=== PATIENT | female | born 1980 | race Caucasian/White ===

== ENCOUNTER 2022-11-03 08:50 | Outpatient (OUT) | payer OTHER, SELFPAY ==
--- NOTE | 2022-11-03 08:57 | XR_ITS ---
The [address] [address] Patient Name: BRYCE VARGAS MRN: [id number] date: 1980 Sex: F Assigned Patient Location: [facility] Current Patient Location: [facility] Accession/Order Number: [id number] Exam Date: 11/03/2022 09:22 Report Date: 11/03/2022 09:41 At the request of: TORY ELIAS Procedure: XR wrist LT min 3V XR wrist LT min 3V, 11/03/2022 9:22 AM EDT INDICATION: Left Wrist Pain COMPARISON: None. TECHNIQUE: 3 views of the left wrist FINDINGS: No fracture or dislocation. No suspicious osseous lesion No radiopaque foreign body. XR/XR wrist LT min 3V IMPRESSION: No acute fracture or dislocation. Electronically authenticated by: JABARI COULTER Date: 11/03/2022 09:41
== END 2022-11-03 08:51 | disposition home or self-care (01) ==
LOC: RAD 08:53
PROVIDERS: PCP Family Medicine; Visit Provider Physician Assistant
DX: M25.532 Pain in left wrist (principal)
CPT/HCPCS: 73110

== ENCOUNTER 2022-11-23 11:45 | Outpatient (RCR) | payer OTHER, SELFPAY | END 2022-12-27 12:03 | disposition home or self-care (01) | LOC: OT 11:45 | PROVIDERS: PCP Family Medicine; Visit Provider Nurse Practitioner Family | DX: S63.502D Unspecified sprain of left wrist, subsequent encounter (principal) | CPT/HCPCS: 97014; 97035; 97110; 97140; 97165; 97530 ==

== ENCOUNTER 2023-06-15 09:37 | Outpatient (OUT) | payer OTHER, SELFPAY ==
--- OUTSIDE RECORDS SUMMARY | 2023-06-15 09:41 | XMS_ITS | CCD ---
Author Name Unknown Address [address] [place] [address] Organization [facility] Care Team Providers Care Insole Stiffener Name Role Phone None Unavailable Unavailable Norbert Roca Unavailable Unavailable KARASIK, DR OTERO Admitting Unavailable KARASIK, DR OTERO Consulting Unavailable KARASIK, DR OTERO Attending Unavailable HOUSE, DR HEART Primary Care Unavailable DORKOETTA KELSEY Consulting Unavailable KARASIK, DR OTERO Admitting Unavailable KARASIK, DR OTERO Consulting Unavailable HOUSE, DR HEART Primary Care Unavailable KARASIK, DR OTERO Attending Unavailable HOUSE, DR HEART Primary Care Unavailable INGA, MELCHOR Attending Unavailable INGA, MELCHOR Admitting Unavailable ZIEBER, DR NIGHAT Mejia Consulting Unavailable INGA, MELCHOR Consulting Unavailable HOUSE, DR HEART Primary Care Unavailable INGA, MELCHOR Attending Unavailable INGA, MELCHOR Admitting Unavailable ANA, DR QUINCY Robert Consulting Unavailable INGA, MELCHOR Consulting Unavailable KARASIK, DR OTERO Admitting Unavailable KARASIK, DR OTERO Attending Unavailable HOUSE, DR HEART Primary Care Unavailable CALIXALEIDA Consulting Unavailable HOUSE, DR HEART Primary Care Unavailable KARASIK, DR OTERO Admitting Unavailable KARASIK, DR OTERO Consulting Unavailable KARASIK, DR OTERO Attending Unavailable Elena Jackson Unavailable Allergies Allergy Classification Reported Allergen(s) Allergy Type Date of Onset Reaction(s) Facility (5 sources) baclofen; Translations: [Baclofen] Drug Allergy 4 AOF, skin [facility] Repository (4 sources) clarithromycin; Translations: [Clarithromycin] Drug Allergy 8 AOF, skin [facility] Repository (1 source) Clarithromycin Drug Allergy 4 [facility] Repository Medications Current Medications Medication Drug Class(es) Dates Sig (Normalized) Sig (Original) amoxicillin 875 mg / clavulanate 125 mg oral tablet (1 source) Penicillin-class Antibacterial Start: 02-06-2022 take 1 tablet by mouth every twelve hours Amoxicillin-Pot Clavulanate 875-125 MG 1 tablet Orally every 12 hrs for 10 day(s) Jan, Active fluticasone propionate 0.05 mg/actuat metered dose nasal spray (2 sources) Corticosteroid Start: 06-03-2022 take 2 spray(s) nasal route once daily Fluticasone Propionate 50 MCG/ACT 2 sprays Nasally Once a day for 14 day(s) May, Active Start: 02-06-2022 take 2 spray(s) nasa l route once daily Fluticasone Propionate 50 MCG/ACT 2 sprays Nasally Once a day for 14 day(s) Jan, Active golimumab (1 source) Tumor Necrosis Factor Gutierrez Simponi Aria Active Ibuprofen (2 sources) Nonsteroidal Anti-inflammatory Drug Ibuprofen Active Leucovorin (2 sources) Folate Analog Leucovorin Calci um Active Methotrexate (3 sources) Folate Analog Metabolic Inhibitor Methotrexate Active predniSONE 20 mg oral tablet (4 sources) Start: take 1 tablet by mouth every twelve hours predniSONE 20 MG 1 tablet Orally 2 times a day for 5 day(s) May, Active Start: 02-06-2022 take 1 tablet by sharmaine th every twelve hours predniSONE 20 MG 1 tablet Orally 2 times a day for 5 day(s) Jan, Active predniSONE Activ e Problems Problem Classification Problem Date Documented Date Episodic/Chronic Abdominal pain (5 sources) Pelvic and perineal pain; Translations: [PELVIC AND PERINEAL PAIN] Onset: 02-07-2021 Episodic Anxiety disorders (1 source) Anxiety disorder, unspecified; Translations: [ANXIETY DISORDER UNSPECIFIED] Onset: 02-17-2021 Chronic Benign neoplasm of uterus (1 source) Leiomyoma of uterus, unspecified; Translations: [LEIOMYOMA OF UTERUS UNSPECIFIED] Onset: 02-17-2021 Episodic Deficiency and other anemia (1 source) Beta thalassemia; Translations: [BETA THALASSEMIA] Onset: 02-17-2021 Chronic Deficiency and other anemia (1 source) Anemia, unspecified; Translations: [ANEMIA UNSPECIFIED] Onset: 02-17-2021 Episodic Endometriosis (1 source) Endometriosis of pelvic peritoneum; Translations: [ENDOMETRIOSIS OF PELVIC PERITONEUM] Onset: 02-17-2021 Chronic Immunizations and screening for infectious disease (5 sources) Encounter for screening for human papillomavirus (HPV); Translations: [Encounter for screening for other viral diseases] Onset: 01-18-2021 Resolved: 09-21-2021 Episodic Inflammatory diseases of female pelvic organs (1 source) Female pelvic peritoneal adhesions (postinfective); Translations: [FE PELV PERITON ADHES POSTINFECTIVE] Onset: 02-17-2021 Episodic Menstrual disorders (1 source) Excessive and frequent menstruation with regular cycle; Translations: [EXCESS FREQ MENSTRUATION W/REG CYCL] Onset: 02-17-2021 Chronic Mood disorders (1 source) Mood disorders; Translations: [DEPRESSION UNSPECIFIED] Onset: 02-17-2021 Other aftercare (1 source) Other jail (current) drug therapy; Translations: [OTH ALF CURRENT DRUG THERAPY] Onset: 02-17-2021 Episodic Other female genital disorders (1 source) Stricture and stenosis of cervix uteri; Translations: [STRICTURE AND STENOSIS CERVIX UTERI] Onset: 02-17-2021 Episodic Other nutritional; endocrine; and metabolic disorders (1 source) Morbid (severe) obesity due to excess calories; Translations: [MORBID SEVERE OBES D/T EXCESS TATI] Onset: 02-17-2021 Chronic Other nutritional; endocrine; and metabolic disorders (1 source) Body mass index (BMI) 40.0-44.9, adult; Translations: [BODY MASS INDEX BMI 40.0-44.9 ADULT] Onset: 02-17-2021 Chronic Other nutritional; endocrine; and metabolic disorders (1 source) Obesity, unspecified; Translations: [OBESITY UNSPECIFIED] Onset: 12-31-2020 Chronic Other screening for suspected conditions (not mental disorders or infectious disease) (4 sources) Encounter for screening for malignant neoplasm of cervix; Translations: [ENC SCREENING MALIG NEOPLASM CERV] Onset: 01-05-2021 Episodic Other upper respiratory disease (1 source) Nasal congestion Episodic Other upper respiratory infections (2 sources) Acute sinusitis, unspecified Episodic Ovarian cyst (6 sources) Unspecified ovarian cyst, unspecified side; Translations: [Unspecified ovarian cyst, left side] Onset: 12-28-2020 Episodic Residual codes; unclassified (1 source) Procedure and treatment not carried out for other reasons; Translations: [PROC AND TX NOT CARRIED OUT OTH REASONS] Onset: 02-17-2021 Episodic Rheumatoid arthritis and related disease (1 source) Rheumatoid arthritis, unspecified; Translations: [RHEUMATOID ARTHRITIS UNSPECIFIED] Onset: 02-17-2021 Chronic Substance-related disorders (1 source) Nicotine dependence, cigarettes, uncomplicated; Translations: [NICOTINE DEPEND CIGARETTES UNCOMP] Onset: 02-17-2021 Chronic Unclassified (1 source) CONTACT W/AND (SUSP) EXPOS COVID-19; Translations: [CONTACT W/AND (SUSP) EXPOS COVID-19] Onset: 02-11-2021 Results Test Name Value Interpretation Reference Range Facility COVID + FLU Quick Testingon 06-03-2022 SARS-CoV-2 (COVID-19) RNA CECIL+probe Ql (Unsp spec) Negative [employer] Other COVID + FLU Quick Testing Negative [employer] Other SARS-CoV-2 (COVID-19) RNA NA A+probe Ql (Resp)on 02-06-2022 SARS-CoV-2 (COVID-19) RNA CECIL+probe Ql (Unsp spec) Negative [employer] Other COVID Quick Testingon 2021 Result Negative [employer] Other Quick Fluon 09-21-2021 FLUAV Ab CF (S) [Titer] Negative [employer] Other FLUBV Ab CF (S) [Titer] Negative [employer] Other URon 02-07-2021 , QUAL Negative Normal NEGATIVE [facility] Comment on above: Performed By: #### L JULI MARTIN AMY #### [facility] [address] [place] [address] Dr. Pasquale Tiwari Covid-19 PCR (CVDTB)on 01-15 SARS-CoV-2 (COVID-19) RNA CECIL+probe Ql (Unsp spec) Not detected Normal NOT DETECTED [facility] Comment on above: Result Comment: This test is not yet approved or cleared by the [place] FDA. When there are no FDA-approved or cleared tests available, and other criteria are met, FDA can make tests available under an emergency access mechanism called an Emergency Use Authorization (EUA). The EUA for this test is supported by the Human Resource Consultant of Health and Human Service's (HHS's) declaration that circumstances exist to justify the emergency use of in vitro diagnostics for the detection and/or diagnosis of the virus that causes COVID-19. This EUA will remain in effect (meaning this test can be used) for the duration of the COVID-19 declaration justifying emergency of IVDs, unless it is terminated or revoked by FDA (after which the test may no longer be used). When diagnostic testing is negative, the possibility of a false negative should be considered in the context of a patient's recent exposures and the presence of clinical signs and symptoms consistent with SARS-CoV-2. Performed By: #### L IPA, CMP, TORY #### [facility] [address] [place] [address] Dr. Pasquale Tiwari CBC AUTO DIFFon 02-01-2021 BASO # 0.0 103/ul Normal 0.0-0.1 [facility] Comment on above: Performed By: #### L IPA, CMP, TORY #### [facility] [address] [place] [address] Dr. Pasquale Tiwari Basophils/100 WBC (Bld) 0.4 % Normal 0.2-2.0 [facility] Comment on above: Performed By: #### L IPA, CMP, TORY #### [facility] [address] [place] [address] Dr. Pasquale Tiwari EO # 0.4 103/ul Normal 0.0-0.7 [facility] Comment on above: Performed By: #### L IPA, CMP, TORY #### [facility] [address] [place] [address] Dr. Pasquale Tiwari Eosinophils/100 WBC (Bld) 4.3 % Normal 0.9-7.0 [facility] Comment on above: Performed By: #### L IPA, CMP, TORY #### [facility] [address] [place] [address] Dr. Pasquale Tiwari Erythrocyte distribution width (RBC) [Ratio] 17.7 % Critically high 11.0-15.0 [facility] Comment on above: Performed By: #### L IPA CMP, TORY #### [facility] [address] [address] [address] Pasquale Tiwari Hematocrit (Bld) [Volume fraction] 33.5 % Critically low 36.0-48.0 [facility] Comment on above: Performed By: #### L IPA CMP, TORY #### [facility] [address] [place] [address] Dr. Pasquale Tiwari Hemoglobin (Bld) [Mass/Vol] 10.1 g/dL Critically low 12.0-16.0 [facility] Comment on above: Performed By: #### L IPA CMP, TORY #### [facility] [address] [place] [address] Dr. Pasquale Tiwari IG # 0.02 10e3/ul Normal 0.00-0.03 [facility] Comment on above: Performed By: #### L IPA CMP, TORY #### [facility] [address] [place] [address] Dr. Pasquale Tiwari IG % 0.2 % Normal 0.0-0.5 [facility] Comment on above: Performed By: #### L IPA CMP, TORY #### [facility] [address] [place] [address] Dr. Pasquale Tiwari LYMPH # 4.1 103/ul Critically high 1.2-3.8 [facility] Comment on above: Performed By: #### L IPA, CMP, TORY #### [facility] [address] [place] [address] Dr. Pasquale Tiwari Lymphocytes/100 WBC (Bld) 40.8 % Normal 20.5-60.0 [facility] Comment on above: Performed By: #### L IPA, CMP, TORY #### [facility] [address] [place] [address] Dr. Pasquale Tiwari MANUAL DIFF REQ NO Normal [facility] Comment on above: Performed By: #### L IPA, CMP, TORY #### [facility] [address] [address] [address] Pasquale Tiwari MCH (RBC) [Entitic mass] 19.3 pg Critically low 26.7-34.0 [facility] Comment on above: Performed By: #### L IPA, CMP, TORY #### [facility] [address] [place] [address] Dr. Pasquale Tiwari MCHC (RBC) [Mass/Vol] 30.1 g/dL Normal 29.9-35.2 [facility] Comment on above: Performed By: #### L IPA, CMP, TORY #### [facility] [address] [place] [address] Dr. Pasquale Tiwari MCV (RBC) [Entitic vol] 64.2 fL Critically low 81.0-99.0 [facility] Comment on above: Performed By: #### L IPA, CMP, TORY #### [facility] [address] [place] [address] Dr. Pasquale Tiwari MONO # 0.7 103/ul Normal 0.3-0.8 [facility] Comment on above: Performed By: #### L IPA, CMP, TORY #### [facility] [address] [place] [address] Dr. Pasquale Tiwari Monocytes/100 WBC (Bld) 6.7 % Normal 1.7-12.0 [facility] Comment on above: Performed By: #### L IPA, CMP, TORY #### [facility] [address] [place] [address] Dr. Pasquale Tiwari NEUT # 4.7 103/ul Normal 1.4-6.5 [facility] Comment on above: Performed By: #### L IPA, CMP, TORY #### [facility] [address] [place] [address] Dr. Pasquale Tiwari Neutrophils/100 WBC (Bld) 47.6 % Normal 43.0-75.0 [facility] Comment on above: Performed By: #### L IPA, CMP, TORY #### [facility] [address] [place] [address] Dr. Pasquale Tiwari Platelet mean volume (Bld) [Entitic vol] 9.1 fL Critically low 9.5-13.5 [facility] Comment on above: Performed By: #### L IPA, CMP, TORY #### [facility] [address] [place] [address] Dr. Pasquale Tiwari PLT 362 103/ul Normal 150-450 [facility] Comment on above: Performed By: #### L IPA, CMP, TORY #### [facility] [address] [place] [address] Dr. Pasquale Tiwari RBC 5.22 106/ul Normal 4.20-5.40 [facility] Comment on above: Performed By: #### L IPA, CMP, TORY #### [facility] [address] [place] [address] Dr. Pasquale Tiwari WBC 10.0 103/ul Normal 4.0-11.0 [facility] Comment on above: Performed By: #### L IPA, CMP, TORY #### [facility] [address] [place] [address] Dr. Pasquale Tiwari PAP ACOG PANEL 2: 30 to 65on 01-11-2021 . . Normal [facility] Comment on above: Result Comment: Perf ormed at: WB Performed By: #### [id number] #### [facility] [address] [place] [address] Dr. Pasquale Tiwari Age Gdln ACOG Testing 30-65 [facility] Comment on above: Performed By: #### [id number] #### [facility] [address] [place] [address] Dr. Pasquale Tiwari DIAGNOSIS: Comment Normal [facility] Comment on above: Result Comment: NEGA TIVE FOR INTRAEPITHELIAL LESION OR MALIGNANCY. Performed at: WB Performed By: #### [id number] #### [facility] [address] [place] [address] Dr. Pasquale Tiwari HPV Aptima Negative Normal Negative [facility] Comment on above: Result Comment: This nucleic acid amplification test detects fourteen high-risk HPV types (16,18,31,33,35,39,45,51,52,56,58,59,66,68) without differentiation. Performed at: =G Performed By: #### [id number] #### [facility] [address] [place] [address] Dr. Pasquale Tiwari Methodology: Comment Normal [facility] Comment on above: Result Comment: This liquid based ThinPrep(R) pap test was screened with the use of an image guided system. Performed at: WB Performed By: #### [id number] #### [facility] [address] [place] [address] Dr. Pasquale Tiwari Note: Comment Normal [facility] Comment on above: Result Comment: The Pap smear is a screening test designed to aid in the detection of premalignant and malignant conditions of the uterine cervix. It is not a diagnostic procedure and should not be used as the sole means of detecting cervical cancer. Both false-positive and false-negative reports do occur. . Performed at: WB Performed By: #### [id number] #### [facility] [address] [place] [address] Dr. Pasquale Tiwari Performed by: Comment Normal [facility] Comment on above: Result Comment: Jasmin Smith, Grit Blaster (ASCP) Performed at: WB Performed By: #### [id number] #### [facility] [address] [place] [address] Dr. Pasquale Tiwari Specimen adequacy: Comment Normal [facility] Comment on above: Result Comment: Sati sfactory for evaluation. No endocervical component is identified. Performed at: WB Performed By: #### [id number] #### [facility] [address] [place] [address] ABD/PELV W CONon 12-30-[address] ABD/PELV W CON EXAMINATION: CT ABD/PELV W CON, 12/28/2020 9:32 PM EDT HISTORY: UNSPECIFIED ABDOMINAL PAIN COMPARISON: None. TECHNIQUE: CT scan of the abdomen and pelvis was performed with IV contrast. CT dose reduction technique was used, including Automated Exposure Control. FINDINGS: LUNG BASES: Mild scattered bibasilar opacities, atelectasis favored LIVER: No enlargement, atrophy, abnormal density, or significant focal lesion. BILIARY: The gallbladder is not visualized PANCREAS: No lesion, fluid collection, ductal dilatation, or atrophy. SPLEEN: No enlargement or focal lesion. ADRENALS: No mass or enlargement. KIDNEYS: No mass, obstruction, or calcification. BOWEL/MESENTERY: Colonic diverticulosis. Nonobstructive bowel gas pattern. Normal appendix. AORTA/VASCULAR: No aortic aneurysm. Mild atherosclerosis. Retroaortic left renal vein. RETROPERITONEUM: No mass or adenopathy. LYMPH NODES: No adenopathy. URINARY BLADDER: No visible focal wall thickening, lesion, or calculus. PELVIC ORGANS: Mild dilation of the endometrial cavity, correlate with the menstrual cycle. Left ovarian hypodense lesion measuring 4.3 cm with a density of 24-26 Hounsfield units. ABDOMINAL WALL: 1 cm umbilical hernia containing fat without strangulation BONES: No bony lesion or fracture. OTHER: Negative. IMPRESSION: 4.3 cm hyperdense lesion of the left ovary possibly a complex or hemorrhagic cyst Electronically authenticated by: QUINCY PEREZ Date: 2020-12-28 23:37 Normal [facility] US PELVIS TRANSVAGon 021 US PELVIS TRANSVAG EXAMINATION: US PELVIS TRANSVAG HISTORY: Cyst of ovary ; low pelvic pain for one day, history of heavy, painful menses COMPARISON: No relevant comparison available. TECHNIQUE: Transabdominal and transvaginal sonographic examination. FINDINGS: UTERUS: Rounded heterogeneous area within the posterior myometrium, 1.3 x 1.0 x 0.8 cm, likely a leiomyoma. Uterus size: 10.1 x 7.5 x 5.1 cm ENDOMETRIUM: Normal homogeneous appearance. Endometrial thickness: 5 mm RIGHT OVARY: Heterogeneous complex cyst versus mass within right ovary, 2.9 x 2.4 x 2.1 cm. Duplex Doppler demonstrates normal waveform and flow; resistive index 0.51. Ovary size: 4.9 x 3.5 x 2.9 cm LEFT OVARY: Contains an isoechoic complex cyst versus mass, 4.3 x 3.7 x 3.2 cm; and a second complex cyst versus mass, 2.1 x 2.1 x 1.5 cm. Duplex Doppler demonstrates normal waveform and flow; resistive index 0.57. Ovary size: 5.2 x 5.2 x 4.3 cm CUL-DE-SAC: Unremarkable. No significant free fluid. BLADDER: Unremarkable. OTHER: None. IMPRESSION: 1. Small posterior uterine wall mass favoring a leiomyoma; of questionable clinical significance. 2. Bilateral ovarian complex cyst versus masses versus endometriomas. Follow-up ultrasound study in 6 weeks is recommended to evaluate for regression/change. Electronically authenticated by: NIGHAT JOSE Date: 2020-12-29 10:09 Normal [facility] AMYLASEon 12-28-2020 Amylase [Catalytic activity/Vol] 36 U/L Normal 31-110 [facility] Comment on above: Performed By: #### L IPA, CMP, TORY #### [facility] [address] [place] [address] Dr. Pasquale Tiwari CBC AUTO DIFFon 12-28-2020 BASO # 0.1 103/ul Normal 0.0-0.1 [facility] Comment on above: Performed By: #### C BC #### [facility] [address] [place] [address] Dr. Pasquale Tiwari Basophils/100 WBC (Bld) 0.5 % Normal 0.2-2.0 [facility] Comment on above: Performed By: #### C BC #### [facility] [address] [place] [address] Dr. Pasquale Tiwari EO # 0.7 103/ul Normal 0.0-0.7 [facility] Comment on above: Performed By: #### C BC #### [facility] [address] [place] [address] Dr. Pasquale Tiwari Eosinophils/100 WBC (Bld) 5.5 % Normal 0.9-7.0 [facility] Comment on above: Performed By: #### C BC #### [facility] [address] [place] [address] Dr. Pasquale Tiwari Erythrocyte distribution width (RBC) [Ratio] 18.0 % Critically high 11.0-15.0 [facility] Comment on above: Performed By: #### C BC #### [facility] [address] [place] [address] Dr. Pasquale Tiwari Hematocrit (Bld) [Volume fraction] 38.7 % Normal 36.0-48.0 [facility] Comment on above: Performed By: #### C BC #### [facility] [address] [address] [address] Pasquale Tiwari Hemoglobin (Bld) [Mass/Vol] 11.8 g/dL Critically low 12.0-16.0 [facility] Comment on above: Performed By: #### C BC #### [facility] [address] [address] [address] Pasquale Tiwari IG # 0.04 10e3/ul Critically high 0.00-0.03 [facility] Comment on above: Performed By: #### C BC #### [facility] [address] [address] [address] Pasquale Tiwari IG % 0.3 % Normal 0.0-0.5 [facility] Comment on above: Performed By: #### C BC #### [facility] [address] [place] [address] Dr. Pasquale Tiwari LYMPH # 3.2 103/ul Normal 1.2-3.8 [facility] Comment on above: Performed By: #### C BC #### [facility] [address] [place] [address] Dr. Pasquale Tiwari Lymphocytes/100 WBC (Bld) 24.9 % Normal 20.5-60.0 [facility] Comment on above: Performed By: #### C BC #### [facility] [address] [place] [address] Dr. Pasquale Tiwari MANUAL DIFF REQ NO Normal [facility] Comment on above: Performed By: #### C BC #### [facility] [address] [address] [address] Pasquale Tiwari MCH (RBC) [Entitic mass] 19.4 pg Critically low 26.7-34.0 [facility] Comment on above: Performed By: #### C BC #### [facility] [address] [place] [address] Dr. Pasquale Tiwari MCHC (RBC) [Mass/Vol] 30.5 g/dL Normal 29.9-35.2 [facility] Comment on above: Performed By: #### C BC #### [facility] [address] [place], [place] [id number] Dr. Pasquale Tiwari MCV (RBC) [Entitic vol] 63.5 fL Critically low 81.0-99.0 [facility] Comment on above: Performed By: #### C BC #### [facility] [address] [place] [address] Dr. Pasquale Tiwari MONO # 0.8 103/ul Normal 0.3-0.8 [facility] Comment on above: Performed By: #### C BC #### [facility] [address] [place] [address] Dr. Pasquale Tiwari Monocytes/100 WBC (Bld) 6.5 % Normal 1.7-12.0 [facility] Comment on above: Performed By: #### C BC #### [facility] [address] [place] [address] Dr. Pasquale Tiwari NEUT # 8.1 103/ul Critically high 1.4-6.5 [facility] Comment on above: Performed By: #### C BC #### [facility] [address] [place] [address] Dr. Pasquale Tiwari Neutrophils/100 WBC (Bld) 62.3 % Normal 43.0-75.0 [facility] Comment on above: Performed By: #### C BC #### [facility] [address] [place] [address] Dr. Pasquale Tiwari Platelet mean volume (Bld) [Entitic vol] 9.6 fL Normal 9.5-13.5 [facility] Comment on above: Performed By: #### C BC #### [facility] [address] [place] [address] Dr. Pasquale Tiwari PLT 333 103/ul Normal 150-450 [facility] Comment on above: Performed By: #### C BC #### [facility] [address] [place], [place] [id number] Dr. Pasquale Tiwari RBC 6.09 106/ul Critically high 4.20-5.[address] [facility] Comment on above: Result Comment: SLID E REVIEWED: MICROCYTOSIS NOTED Performed By: #### C BC #### [facility] [address] [address] [address] Pasquale Tiwari WBC 13.0 103/ul Critically high 4.0-11.[address] [facility] Comment on above: Performed By: #### C BC #### [facility] [address] [place] [address] Dr. Pasquale Tiwari ER URINE PROFILEon 1 Bilirubin Ql (U) SMALL Abnormal NEGATIVE [facility] Comment on above: Performed By: #### E RUR, PREGU, UMICRO #### [facility] [address] [place] [address] Dr. Pasquale Tiwari Clarity (U) CLEAR Normal CLEAR [facility] Comment on above: Performed By: #### E RUR, PREGU, UMICRO #### [facility] [address] [place] [address] Dr. Pasquale Tiwari Color (U) DK. YELLOW Normal YELLOW [facility] Comment on above: Performed By: #### E RUR, PREGU, UMICRO #### [facility] [address] [place] [address] Dr. Pasquale RUIZ A micrscopic examination will be performed if indicated. Normal [facility] Comment on above: Performed By: #### E RUR, PREGU, UMICRO #### [facility] [address] [place] [address] Dr. Pasquale Tiwari Glucose Ql (U) Negative Normal NEGATIVE [facility] Comment on above: Performed By: #### E RUR, PREGU, UMICRO #### [facility] [address] [place] [address] Dr. Pasquale Tiwari Hemoglobin Ql (U) LARGE Abnormal NEGATIVE The [facility] Comment on above: Performed By: #### E RUR, PREGU, UMICRO #### [facility] [address] [place] [address] Dr. Pasquale Tiwari Ketones Ql (U) 15 mg/dl Abnormal NEGATIVE [facility] Comment on above: Performed By: #### E RUR, PREGU, UMICRO #### [facility] [address] [place] [address] Dr. Pasquale Tiwari LEUKOCYTES Negative Normal NEGATIVE [facility] Comment on above: Performed By: #### KELSY BLACK UMICRO #### [facility] [address] [place] [address] Dr. Pasquale Tiwari Nitrite Ql (U) Negative Normal NEGATIVE [facility] Comment on above: Performed By: #### KELSY BLACK UMICRO #### [facility] [address] [address] [address] Pasquale Tiwari pH (U) 5.5 [pH] Normal 5-9 [facility] Comment on above: Performed By: #### KELSY BLACK UMICRO #### [facility] [address] [place] [address] Dr. Pasquale Tiwari Protein (U) [Mass/Vol] 30 mg/dL Abnormal NEGATIVE/ TRACE [facility] Comment on above: Performed By: #### KELSY BLACK UMICRO #### [facility] [address] [place] [address] Dr. Pasquale Tiwari SPEC GRAVITY >=1.030 Abnormal 1.005-<=1.025 The [facility] Comment on above: Performed By: #### KELSY BLACK UMICRO #### [facility] [address] [place] [address] Dr. Pasquale Tiwari UR MICRO IND INDICATED Normal [facility] Comment on above: Performed By: #### KELSY BLACK UMICRO #### [facility] [address] [place] [address] Dr. Pasquale Tiwari Urobilinogen Qn (U) 1.0 {Anuja'U}/dL Normal 0.2 - 1. 0 [facility] Comment on above: Performed By: #### KELSY BLACK UMICRO #### [facility] [address] [place] [address] Dr. Pasquale Tiwari LACTATE/LACTIC ACIDon 2020 Lactate [Moles/Vol] 1.5 mmol/L Normal 0.7-2.0 [facility] Comment on above: Performed By: #### L IPA, CMP, TORY #### [facility] [address] [place] [address] Dr. Pasquale Tiwari LIPASEon 12-28-2020 Lipase [Catalytic activity/Vol] 101.0 U/L Normal 23.0-300.0 [facility] Comment on above: Performed By: #### L IPA, CMP, TORY #### [facility] [address] [place] [address] Dr. Pasquale Tiwari URon 12-28-2020 , QUAL Negative Normal NEGATIVE [facility] Comment on above: Performed By: #### E RUR, PREGU, UMICRO #### [facility] [address] [place] [address] Dr. Pasquale Tiwari PROF 14(COMP METB)on 021 Albumin [Mass/Vol] 3.9 g/dL Normal 3.5-5.0 [facility] Comment on above: Performed By: #### L IPA, CMP, TORY #### [facility] [address] [place] [address] Dr. Pasquale Tiwari Albumin/Globulin [Mass ratio] 1.0 {ratio} Normal [facility] Comment on above: Performed By: #### L IPA, CMP, TORY #### [facility] [address] [place] [address] Dr. Pasquale Tiwari ALP [Catalytic activity/Vol] 105 U/L Normal 38-126 [facility] Comment on above: Performed By: #### L IPA, CMP, TORY #### [facility] [address] [place] [address] Dr. Pasquale Tiwari ALT [Catalytic activity/Vol] 22 U/L Normal 9-52 [facility] Comment on above: Performed By: #### L IPA, CMP, TORY #### [facility] [address] [place] [address] Dr. Pasquale Tiwari Anion gap [Moles/Vol] 11.9 mmol/L Normal [facility] Comment on above: Performed By: #### L IPA, CMP, TORY #### [facility] [address] [place], [place] [id number] Dr. Pasquale Tiwari AST [Catalytic activity/Vol] 17 U/L Normal 14-36 [facility] Comment on above: Performed By: #### L IPA, CMP, TORY #### [facility] [address] [place] [address] Dr. Pasquale Tiwari Bilirubin [Mass/Vol] 0.5 mg/dL Normal 0.2-1.3 [facility] Comment on above: Performed By: #### L IPA, CMP, TORY #### [facility] [address] [place] [address] Dr. Pasquale Tiwari Calcium [Mass/Vol] 9.3 mg/dL Normal 8.4-10.2 [facility] Comment on above: Performed By: #### L IPA, CMP, TORY #### [facility] [address] [place] [address] Dr. Pasquale Tiwari Chloride [Moles/Vol] 107 mmol/L Normal 98-107 [facility] Comment on above: Performed By: #### L IPA, CMP, TORY #### [facility] [address] [place] [address] Dr. Pasquale Tiwari CO2 [Moles/Vol] 26.4 mmol/L Normal 22.0-30.0 [facility] Comment on above: Performed By: #### L IPA, CMP, TORY #### [facility] [address] [place] [address] Dr. Pasquale Tiwari Creatinine [Mass/Vol] 1.11 mg/dL Critically high 0.52-1.04 [facility] Comment on above: Performed By: #### L IPA, CMP, TORY #### [facility] [address] [place] [address] Dr. Pasquale Tiwari EGFR-AF UZBEK >60 Normal >=[address] [facility] Comment on above: Performed By: #### L IPA, CMP, TORY #### [facility] [address] [place] [address] Dr. Pasquale Tiwari EGFR-NON AF UZBEK 54 mL/min/1.73m2 Critically low >=60 [facility] Comment on above: Performed By: #### L IPA, CMP, TORY #### [facility] [address] [address] [address] Pasquale Tiwari Globulin (S) [Mass/Vol] 4.0 g/dL Normal [facility] Comment on above: Performed By: #### L IPA, CMP, TORY #### [facility] [address] [address] [address] Pasquale Tiwari Glucose [Mass/Vol] 127 mg/dL Critically high 74-106 [facility] Comment on above: Performed By: #### L IPA, CMP, TORY #### [facility] [address] [address] [address] Pasquale Tiwari Potassium [Moles/Vol] 3.3 mmol/L Critically low 3.4-5.0 [facility] Comment on above: Performed By: #### L IPA, CMP, TORY #### [facility] [address] [place] [address] Dr. Pasquale Tiwari Protein [Mass/Vol] 7.9 g/dL Normal 6.1-8.2 [facility] Comment on above: Performed By: #### L IPA, CMP, TORY #### [facility] [address] [address] [address] Pasquale Tiwari Sodium [Moles/Vol] 142 mmol/L Normal 137-145 [facility] Comment on above: Performed By: #### L IPA, CMP, TORY #### [facility] [address] [address] [address] Pasquale Tiwari Urea nitrogen [Mass/Vol] 13.0 mg/dL Normal 7.0-17.0 [facility] Comment on above: Performed By: #### L IPA, CMP, TORY #### [facility] [address] [address] [address] Pasquale Tiwari Urea nitrogen/Creatinine [Mass ratio] 11.7 mg/mg Normal [facility] Comment on above: Performed By: #### L IPA, CMP, TORY #### [facility] [address] [address] [address] Pasquale Tiwari URINE MICROSCOPIC ONLYon BACTERIA TRACE Abnormal NONE SEEN [facility] Comment on above: Performed By: #### E RUR, PREGU, UMICRO #### [facility] [address] [address] [address] Pasquale Tiwari Bacteria identified Cx Nom (U) NOT INDICATED Normal [facility] Comment on above: Performed By: #### E RUR, PREGU, UMICRO #### [facility] [address] [address] [address] Pasquale Tiwari CA OX CRYSTALS FEW Normal [facility] Comment on above: Performed By: #### E RUR, PREGU, UMICRO #### [facility] [address] [address] [address] Pasquale Tiwari CAST NONE SEEN Normal NONE SEEN [facility] Comment on above: Performed By: #### E RUR, PREGU, UMICRO #### [facility] [address] [address] [address] Pasquale Tiwari Crystals LM Nom (Urine sed) SEEN Abnormal NONE SEEN [facility] Comment on above: Performed By: #### E RUR, PREGU, UMICRO #### [facility] [address] [address] [address] Pasquale Tiwari Epithelial cells LM Ql (Urine sed) MODERATE Abnormal NONE SEEN /RARE [facility] Comment on above: Performed By: #### E RUR, PREGU, UMICRO #### [facility] [address] [address] [address] Pasquale Tiwari MUCOUS LARGE Abnormal NONE SEEN [facility] Comment on above: Performed By: #### E RUR, PREGU, UMICRO #### [facility] [address] [address] [address] Pasquale Tiwari RBC 5-10 Abnormal 0-2 [facility] Comment on above: Performed By: #### E RUR, PREGU, UMICRO #### [facility] [address] [address] [address] Pasquale Tiwari WBC 2-5 Abnormal NONE SEEN [facility] Comment on above: Performed By: #### E RUR, PREGU, UMICRO #### [facility] [address] [place], [place] [address] Dr. Pasquale Tiwari ER Physician Documentationon 11-12-2017 ER Physician Documentation [facility] Patient: BRYCE VARGAS [address] : 1980 [place], [place] [address] Location: ER [phone] Unit #: [id number] ER Physician Documentation Service Date:11/08/17 ER Provider: Norbert Roca MD HPI - Upper Extremity Problem Time Seen by Provider: 11/08/17 07:53 Arrival Mode: Private Vehicle Historian: Patient - History of Present Illness Stated Complaint: RT NECK SHOULDER WRIST PAIN Symptoms Began: Yesterday Injury: No Location: Right, Shoulder, Wrist Ms. Bruce is a 37-year-old female presenting to the ED with complaint of right shoulder, neck, wrist pain. Patient states that she developed the symptoms yesterday she was taking Aleve/ibuprofen for her pain at home. She obtained a little relief however then she developed the pain again this morning around 2 in the morning when she was driving home. Patient states that the pain became too much therefore she stopped it to be evaluated. She does admit to a history of rheumatoid arthritis, although she states the only medication she takes is ibuprofen for her rheumatoid arthritis. She has tried other medications in the past, but had an adverse reaction therefore she discontinued them. Patient denies any other medical history. She additionally denies any injury to the area. Past Medical History Allergies/Adverse Reactions: Allergies/Adverse Reactions Clarithromycin [From Biaxin] Allergy (Severe, Verified 11/08/17 08:05) SKIN PEELS OFF Baclofen Allergy (Unknown, Verified 11/08/17 08:05) Nausea and Vomiting Home Medications: Home Medications Cyclobenzaprine HCl [Flexeril] 10 mg PO BID #14 tab 11/08/17 [Rx] Review and agree with Nursing - Past Medical History: Agree Review and agree with Nursing - Social History: Agree Review and agree with Nursing - Family History: Agree Review of Systems Constitutional: No symptoms EENT: No symptoms Respiratory: No symptoms Cardiac: No symptoms Abdomen/GI: No symptoms Genitourinary: No symptoms Skin: No symptoms Musculoskeletal: Other - Right neck, shoulder, wrist pain. Neurological: No symptoms Endocrine: No symptoms Hematologic/Lymphatic : No symptoms Psychiatric: No symptoms All other systems: Reviewed and negative except HPI Exam - Physical Exam Patient presentation: No apparent distress General Appearance: Positive: Resting comfortable General Age: Appears stated age General Skin: Normal for ethnicity General Habitus: Normal General Mental Status: Alert General hydration: Moist mucous membranes Cardiovascular Exam: Regular rate and rhythm, No gallop, No murmur Heart sounds: Normal Pulmonary exam: Lungs clear, No wheezing, No respiratory distress, No crackles Cough: No cough Respirations: Normal Gastrointestinal Exam: Normal bowel sounds, non tender, No masses, Soft, No organomegaly - Musculoskeletal Exam Musculoskeletal Exam: Full ROM - to the neck, however patient does admit to some discomfort., Neurovascular intact, Other - Fall range of motion to the elbow and wrist joint. No edema noted. Limited range of motion to the right shoulder joint due to pain. - Psychiatric Exam Alert , oriented x 3, Normal mood affect, Normal speech - Progress note 09:30 Pt admits to some relief with Toradol. Patient will be given second dose. 10:04 Pt was updated on her imaging results and plan to discharge with a muscle relaxer. Pt stated that her pain had improved after second toradol dose. Pt agreed to POC. All questions were answered. - Orders/Results Orders XR Cervical Spine Routine Stat Exams 11/08/17 08:25 Completed XR Shoulder Right 2-3 Views Stat Exams 11/08/17 08:25 Completed Vital Signs 11/08/17 07:53 97.8 F 69 18 148/97 H 100 Departure Disposition*: Discharge from ER Condition*: Good Clinical Impression*: Muscle spasm Shoulder pain Qualifiers: Chronicity: unspecified Laterality: right Qualified Code(s): M25.511 - Pain in right shoulder Additional Instructions: Return to the emergency department if any new or worsening symptoms. Follow-up with your provider who manages her rheumatoid arthritis in one week. Take muscle relaxer as directed. Do not take while operating a vehicle as medication can make sleepy. Referrals: Non Staff,Physician [Other] - in one week Forms: ED Additional Information Prescriptions: Cyclobenzaprine HCl [Flexeril] 10 mg PO BID #14 tab - Shared Attending Note 11/08/17 8:21 Dr. Norbert Roca physically examined the pt. Pt presented to ED with a c/o right shoulder, neck, and wrist pain. Pt has a Hx of rheumatoid arthritis. Physical exam findings included reproducible tenderness to the shoulder with palpation and ROM. Dr. Roca agrees to JUICE Infante POC. All questions and concerns were addressed. - Supervision/Review Statement Evaluation and management services were performed by the PROTOTYPE MACHINIST/JOSE/Resident under my supervision/collabora tion with my participation. I have reviewed all pertinent clinical information, including history, physical exam and plan. Dr. Norbert Roca. - Scribe Attestation By electronically signing this emergency patient record, the Emergency Physician attests that all entries made into the electronic medical record by the scribe prior to the Physician electronic signature reflect an accurate accounting of the evaluation and care rendered by that Emergency Physician. The Emergency Physician assumes full responsibility for those entries. The Emergency Physician also attests that any patient testing and treatment that was instituted by nursing staff in accordance with Emergency Department Preemptive Guidelines have been reviewed and unless so stated elsewhere in this patient chart, the physician agrees with the testing and care provided. I, Yumiko Mehta, documented the shared attending note for Dr. Norbert Roca. cc: None Dictated by: Livia Clements PA-C on 11/08/17 0809 Transcribed by: Livia Clements PA-C on 11/08/17 0809 Report Signed by: Livia Clements PA-C on 11/12/17 1102 < > Report Signed by: Norbert Roca MD on 11/09/17 0826 < > Report Signed by: on Report Signed by: on Co-Signer: on Normal [facility] XR Cervical Spine Routineon 11-08-2017 XR Cervical Spine Routine [facility] Radiology Department Patient: BRYCE VARGAS [address] : 1980 Sex: [address] [address] [address] Location: [phone] [id number] Ordering Phys: Livia Clements PA-C Exam Date: 11/08/17 Exam: MAIN XR Cervical Spine Routine Result: STUDY: X-RAY - CERVICAL SPINE REASON FOR EXAM: Female, 37 years old. Neck pain since yesterday TECHNIQUE: 4 view(s) of the cervical spine were obtained. COMPARISON: None FINDINGS: Normal anterior atlantoaxial articulation. Normal odontoid process. There is straightening of the normal cervical lordosis. Normal vertebral bodies and endplates. Normal disc space heights. The soft tissue structures are unremarkable. IMPRESSION: 1. No significant degenerative disc disease. 2. Straightening of the normal cervical lordosis could be positional artifact or related to muscular spasm. Electronically Signed: Sarmad Sanchez MD at 9:21 EDT , Service support , cc: Livia Clements PA-C; None Dictated by: Dee Sanchez MD on 11/08/17920 Technologist: Transcribed by: Dee Sanchez on 11/08/17920 Report Signed by: Daniel BARRAZA,Dee Marin on 11/08/17920 Normal [facility] XR Shoulder Right 2-3 Viewso n 11-08-2017 XR Shoulder Right 2-3 Views [facility] Radiology Department Patient: BRYCE VARGAS [address] : 1980 Sex: [address] [address] Location: [facility] [phone] Unit #: [id number] Ordering Phys: Livia Clements PA-C Exam Date: 11/08/17 Exam: MAIN XR Shoulder Right 2-3 Views Result: STUDY: X-RAY - RIGHT SHOULDER REASON FOR EXAM: Female, 37 years old. Right shoulder pain since yesterday TECHNIQUE: 3 view(s) of the shoulder. COMPARISON: None. FINDINGS: Normal glenohumeral articulation. Normal acromioclavicular joint. Normal acromion. Normal humeral head and visualized proximal humerus. The soft tissue structures are unremarkable. Normal visualized pulmonary apex. IMPRESSION: Normal x-ray examination of the shoulder. Electronically Signed: Sarmad Sanchez MD at 9:20 EDT , Service support , cc: Livia Clements PA-C; None Dictated by: Dee Sanchez MD on 11/08/17919 Technologist: Transcribed by: Dee Sanchez on 11/08/17919 Report Signed by: Daniel BARRAZA,Dee Marin on 11/08/17919 Normal [facility] Vital Signs Date Time Vital Sign Value Performing Clinician Facility 06-03-2022 13:30-0500 Body height 160.02 cm Elena Vaughanmond Other [facility] Other 06-03-2022 13:30-0500 Body mass index (BMI) [Ratio] 45.34 kg/m2 Elena Renetta Other [facility] Other 06-03-2022 13:30-0500 Body temperature 98.2 [degF] Elena Renetta Other [facility] Other 06-03-2022 13:30-0500 Body weight 116.12 kg Elena Vaughanmond Other [facility] Other 06-03-2022 13:30-0500 Respiratory rate 18 /min Elena Vaughanmond Other [facility] Other 06-03-2022 13:30-0500 SaO2% (BldA) [Mass fraction] 97 % Elena Jackson Other [facility] Other 02-06-2022 10:40-0400 Body height 160.02 cm Elena Jackson Other [facility] Other 02-06-2022 10:40-0400 Body mass index (BMI) [Ratio] 42.51 kg/m2 Elena Vaughanmond Other [facility] Other 02-06-2022 10:40-0400 Body temperature 97.7 [degF] Elena Vaughanmond Other [facility] Other 02-06-2022 10:40-0400 Body weight 108.86 kg Elena Vaughanmond Other [facility] Other 02-06-2022 10:40-0400 Respiratory rate 18 /min Elena Jackson Other [facility] Other 02-06-2022 10:40-0400 SaO2% (BldA) [Mass fraction] 96 % Elena Vaughanmond Other [facility] Other Encounters Encounter Date Encounter Type Care Provider Facility Start: 06-03-2022 End: 06-03-2022 ambulatory Elena Renetta Other [facility] Other Start: 06-03-2022 Office outpatient vi sit 15 minutes Elenashantell Jackson [facility] Start: 02-06-2022 End: 02-06-2022 ambulatory Elena Renetta Other [facility] Other Start: 02-06-2022 Office outpatient vi sit 15 minutes Elena Renetta [facility] Start: 09-21-2021 End: 09-21-2021 ambulatory Elena Jackson Other [facility] Other Start: 09-21-2021 Nursing evaluation o f patient and report Elena Jackson [facility] Start: 02-11-2021 Encounter for preprocedural laboratory examination DR BRANDEN MATIAS [facility] Start: 02-07-2021 Encounter for other preprocedural examination DR BRANDEN MATIAS [facility] Start: 02-07-2021 End: 02-07-[address] BRANDEN MATIAS Facility:[facility] Start: 02-04-2021 End: 02-05-[address] UNA WOODWARD Facility:[facility] Start: 02-04-2021 End: 02-05-2021 Encounter for preprocedural laboratory examination DR UNA WOODWARD Facility:[facility] Start: 02-01-2021 End: 02-02-[address] BRANDEN MATIAS Facility:[facility] Start: 01-05-2021 End: 01-05-[address] BRANDEN MATIAS Facility:[facility] Start: 12-29-2020 End: 12-30-[address] UNA WOODWARD Facility:[facility] Start: 12-28-2020 End: 12-29-[address] UNA WOODWARD Facility:[facility] Start: 11-08-2017 End: 11-08-2017 Emergency department patient visit None Facility:[facility] Payers Date Payer Category Payer Unknown [id number] 06.01.83 [id number] 1980 Unknown [id number] 06.01.83 [id number] 1980 Unknown [id number] 06.01.83 [id number] 1980 Unknown [id number] 06.01.83 [id number] 1980 Unknown [id number] 06.01.83 [id number] 1980 Unknown [id number] 06.01.83 [id number] 1960 [facility] [id number] Social History Date Type Detail Facility Unknown if ever smoked [facility] Other Sex Assigned At Sex Assigned At Bir th [facility] Other Evaluation note 06-03-2022 Note Date & Type Note Facility 06-03-2022 Evaluation note Encounter Date Diagnosis Assessment Notes May, Nasal congestion (ICD-10 - R09.81) May, Acute sinusitis, recurrence not specified, unspecified location (ICD-10 - J01.90) Sinusitis home care material was printed Drink plenty fluids, get plenty of rest. Take the prednisone as prescribed until gone. Use the fluticasone nasal spray until your symptoms improve. Take Mucinex and/or Sudafed for nasal congestion. Follow-up with your family physician if no improvement in 2 to 3 days. [facility] Other Evaluation note 02-06-2022 Note Date & Type Note Facility 02-06-2022 Evaluation note Encounter Date Diagnosis Assessment Notes Jan, Contact with and (suspected) exposure to other viral communicable diseases (ICD-10 - Z20.828) Jan, Acute sinusitis, recurrence not specified, unspecified location (ICD-10 - J01.90) Sinusitis home care material was printed Drink plenty fluids, get plenty of rest. Take the amoxicillin with clavulanate and prednisone as prescribed until gone. Use the Flonase inhaler as prescribed until your symptoms improve. Take Tylenol or Motrin for aches pains or fevers. Follow-up with your family physician if no improvement in 2 to 3 days. [facility] Other Evaluation note 09-21-2021 Note Date & Type Note Facility 09-21-2021 Evaluation note Encounter Date Diagnosis Assessment Notes Sep, Encounter for screening for other viral diseases (ICD-10 - Z11.59) Sep, Other Additional time spent conducting pre-visit phone call, screening for symptoms, instructions on social distancing, application and removal of PPE, and cleaning of examination room, equipment and supplies was preformed. Patient education given for testing methodology and results. Patient care instructions given in writting by [facility] document. [facility] Other History general Narrative - Reported Note Date & Type Note Facility History general Narrative - Reported Type Medical History rheumatoid arthritis [facility] Other Summary Purpose Family History No Family History Records FoundNo Family History Records Found Advance Directives No Advanced Directives Records FoundNo Advanced Directives Records Found Additional Source Comments INFORMATION SOURCE (unrecogn ized section and content) DATE CREATED AUTHOR 11/12/2017 [facility] DATE CREATED AUTHOR AUTHOR'S ORGANIZ ATION 02/18/2021 [facility] REASON FOR VISIT (unrecogniz ed section and content) H/A, CONGESTION, B/A, NAUSEA .HERNANDEZ JEEP, COUGH, CONGESTION, SORE THROAT, H/A FOR RECORDS PERTAINING TO PATIENTS WHO ARE OR HAVE BEEN ENROLLED IN A CHEMICAL DEPENDENCY/SUBSTANCEABUSE PROGRAM, SOME INFORMATION MAY BE OMITTED. This clinical summary was aggregated from multiple sources. Caution should be exercised in using it in the provision of clinical care. This summary normalizes information from multiple sources, and as a consequence, information in this document may materially change the coding, format and clinical context of patient data. In addition, data may be omitted in some cases. CLINICAL DECISIONS SHOULD BE BASED ON THE PRIMARY CLINICAL RECORDS. [facility]. provides no warranty or guarantee of the accuracy or completeness of information in this document.
--- NOTE | 2023-06-15 09:42 | XR_ITS ---
The [address] [address] Patient Name: BRYCE VARGAS MRN: [id number] date: 1980 Sex: F Assigned Patient Location: [facility] Current Patient Location: [facility] Accession/Order Number: [id number] Exam Date: 06/15/2023 09:49 Report Date: 06/15/2023 10:01 At the request of: ALTAGRACIA MERAZ Procedure: XR hand LT min 3V PROCEDURE: XR hand LT min 3V, XR wrist LT min 3V COMPARISON: None. HISTORY: left hand/wrist injury, pain FINDINGS: BONES:No acute fracture or dislocation of the hand or wrist. No significant proliferative or erosive degenerative changes SOFT TISSUES:Negative. No visible soft tissue swelling. EFFUSION:None visible. OTHER: Negative. XR/XR hand LT min 3V IMPRESSION: No acute radiographic abnormality of the wrist or hand Electronically authenticated by: QUINCY PEREZ Date: 06/15/2023 10:01
--- NOTE | 2023-06-15 09:43 | XR_ITS ---
The [address] [address] Patient Name: BRYCE VARGAS MRN: [id number] date: 1980 Sex: F Assigned Patient Location: [facility] Current Patient Location: [facility] Accession/Order Number: [id number] Exam Date: 06/15/2023 09:49 Report Date: 06/15/2023 10:01 At the request of: ALTAGRACIA MERAZ Procedure: XR wrist LT min 3V PROCEDURE: XR hand LT min 3V, XR wrist LT min 3V COMPARISON: None. HISTORY: left hand/wrist injury, pain FINDINGS: BONES:No acute fracture or dislocation of the hand or wrist. No significant proliferative or erosive degenerative changes SOFT TISSUES:Negative. No visible soft tissue swelling. EFFUSION:None visible. OTHER: Negative. XR/XR wrist LT min 3V IMPRESSION: No acute radiographic abnormality of the wrist or hand Electronically authenticated by: QUINCY PEREZ Date: 06/15/2023 10:01
== END 2023-06-15 09:38 | disposition home or self-care (01) ==
LOC: RAD 09:39
PROVIDERS: PCP Family Medicine; Visit Provider Nurse Practitioner Family
DX: M25.532 Pain in left wrist (principal)
CPT/HCPCS: 73110; 73130

== ENCOUNTER 2023-09-06 04:02 | Emergency (ER) | payer BC, SELFPAY ==
[2023-09-06 04:11] VITALS: BP 137/99; PULSE 62; TEMP 36.5; O2SAT 97; BMI 43.9
--- OUTSIDE RECORDS SUMMARY | 2023-09-06 04:15 | XMS_ITS | CCD ---
Demographics Address [address] [id number] Preferred Language en Marital Status Unknown Yazdanism Affiliation Unknown Race White Ethnic Group Not or Lati no Author Organization [facility] Care Team Providers Care Bottom Hoop Driver Name Role Phone None Unavailable Unavailable Norbert [...] MELCHOR Attending Unavailable INGA, MELCHOR Admitting Unavailable WEST, DR QUINCY Robert Consulting Unavailable INGA, MELCHOR [...] Translations: [Baclofen] Drug Allergy 4 AOF, skin [facility] (4 sources) clarithromycin; Translations: [Clarithromycin] Drug Allergy 8 AOF, skin [facility] (1 source) Clarithromycin Drug Allergy 4 [facility] Medications Current Medications Medication Drug [...] Onset: 02-17-2021 Other aftercare (1 source) Other retirement (current) drug therapy; 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] Onset: 02-17-2021 Episodic Other [...] (COVID-19) RNA CECIL+probe Ql (Unsp spec) Negative [employer] Other COVID + FLU Quick Testing Negative [employer] Other SARS-CoV-2 (COVID-19) RNA NA A+probe Ql (Resp)on 02-06-2022 SARS-CoV-2 (COVID-19) RNA CECIL+probe Ql (Unsp spec) Negative [employer] Other COVID Quick Testingon 2021 Result Negative [employer] Other Quick Fluon 09-21-2021 FLUAV Ab CF (S) [Titer] Negative [employer] Other FLUBV Ab CF (S) [Titer] Negative [employer] Other URon 02-07-2021 , QUAL Negative Normal NEGATIVE [facility] Comment on above: Performed By: #### L IPA, CMP, TORY #### [facility] [address] [place] [address] Dr. Pasquale iTwari Covid-19 PCR (CVDTB)on 01-15 SARS-CoV-2 (COVID-19) RNA CECIL+probe Ql (Unsp spec) Not detected Normal NOT DETECTED [facility] Comment on above: Result Comment: This test is not yet approved or cleared by the [place] FDA. When there are no FDA-approved or cleared tests available, and other criteria are met, FDA can make tests available under an emergency access mechanism called an Emergency Use Authorization (EUA). The EUA for this test is supported by the [place] of Health and Human Service's (HHS's) declaration [...] By: #### L IPA, CMP, TORY #### [facility] [address] [place] [address] Dr. Pasquale Tiwari CBC AUTO DIFFon 02-01-2021 BASO # 0.0 103/ul Normal 0.0-0.1 [facility] Comment on above: Performed By: #### L IPA, CMP, TORY #### [facility] [address] [place] [address] Dr. Pasquale Tiwari Basophils/100 WBC (Bld) 0.4 % Normal 0.2-2.0 [facility] Comment on above: Performed By: #### L IPA, CMP, TORY #### [facility] [address] [place] [address] Dr. Pasquale Tiwari EO # 0.4 103/ul Normal 0.0-0.7 [facility] Comment on above: Performed By: #### L IPA, CMP, TORY #### [facility] [address] [place] [address] Dr. Pasquale Tiwari Eosinophils/100 WBC (Bld) 4.3 % Normal 0.9-7.0 [facility] Comment on above: Performed By: #### L IPA, CMP, TORY #### [facility] [address] [place] [address] Dr. Pasquale Tiwari Erythrocyte distribution width (RBC) [Ratio] 17.7 % Critically high 11.0-15.0 [facility] Comment on above: Performed By: #### L IPA, CMP, TORY #### [facility] [address] [place] [address] Dr. Pasquale Tiwari Hematocrit (Bld) [Volume fraction] 33.5 % Critically low 36.0-48.0 [facility] Comment on above: Performed By: #### L IPA, CMP, TORY #### [facility] [address] [place] [address] Dr. Pasquale Tiwari Hemoglobin (Bld) [Mass/Vol] 10.1 g/dL Critically low 12.0-16.0 [facility] Comment on above: Performed By: #### L IPA, CMP, TORY #### [facility] [address] [place] [address] Dr. Pasquale Tiwari IG # 0.02 10e3/ul Normal 0.00-0.03 [facility] Comment on above: Performed By: #### L IPA, CMP, TORY #### [facility] [address] [place] [address] Dr. Pasquale Tiwari IG % 0.2 % Normal 0.0-0.5 [facility] Comment on above: Performed By: #### L IPA, CMP, TORY #### [facility] [address] [place] [address] Dr. Pasquale Tiwari LYMPH # 4.1 103/ul Critically high 1.2-3.8 [facility] Comment on above: Performed By: #### L IPA, CMP, TORY #### [facility] [address] [place] [address] Dr. Pasquale Tiwari Lymphocytes/100 WBC (Bld) 40.8 % Normal 20.5-60.0 [facility] Comment on above: Performed By: #### L IPA, CMP, TORY #### [facility] [address] [place] [address] Dr. Pasquale Tiwari MANUAL DIFF REQ NO Normal [facility] Comment on above: Performed By: #### L IPA, CMP, TORY #### [facility] [address] [place] [address] Dr. Pasquale Tiwari MCH (RBC) [Entitic mass] 19.3 pg Critically low 26.7-34.0 [facility] Comment on above: Performed By: #### L IPA, CMP, TORY #### [facility] [address] [address] [address] Pasquale Tiwari MCHC (RBC) [Mass/Vol] 30.1 g/dL Normal 29.9-35.2 [facility] Comment on above: Performed By: #### L IPA, CMP, TORY #### [facility] [address] [place] [address] Dr. Pasquale Tiwari MCV (RBC) [Entitic vol] 64.2 fL Critically low 81.0-99.0 [facility] Comment on above: Performed By: #### L IPA, CMP, TORY #### [facility] [address] [place] [address] Dr. Pasquale Tiwari MONO # 0.7 103/ul Normal 0.3-0.8 [facility] Comment on above: Performed By: #### L IPA, CMP, TORY #### [facility] [address] [place] [address] Dr. Pasquale Tiwari Monocytes/100 WBC (Bld) 6.7 % Normal 1.7-12.0 [facility] Comment on above: Performed By: #### L IPA, CMP, TORY #### [facility] [address] [place] [address] Dr. Pasquale Tiwari NEUT # 4.7 103/ul Normal 1.4-6.5 [facility] Comment on above: Performed By: #### L IPA, CMP, TORY #### [facility] [address] [place] [address] Dr. Pasquale Tiwari Neutrophils/100 WBC (Bld) 47.6 % Normal 43.0-75.0 [facility] Comment on above: Performed By: #### L IPA, CMP, TORY #### [facility] [address] [place] [address] Dr. Pasquale Tiwari Platelet mean volume (Bld) [Entitic vol] 9.1 fL Critically low 9.5-13.5 [facility] Comment on above: Performed By: #### L IPA, CMP, TORY #### [facility] [address] [address] [address] Pasquale Tiwari PLT 362 103/ul Normal 150-450 [facility] Comment on above: Performed By: #### L IPA, CMP, TORY #### [facility] [address] [address] [address] Pasquale Tiwari RBC 5.22 106/ul Normal 4.20-5.40 [facility] Comment on above: Performed By: #### L IPA, CMP, TORY #### [facility] [address] [address] [address] Pasquale Tiwari WBC 10.0 103/ul Normal 4.0-11.0 [facility] Comment on above: Performed By: #### L IPA, CMP, TORY #### [facility] [address] [address] [address] Pasquale Tiwari PAP ACOG PANEL 2: 30 to 65on 01-11-2021 . . Normal [facility] Comment on above: Result Comment: Perf ormed at: WB Performed By: #### [id number] #### [facility] [address] [place] [address] Dr. Pasquale Tiwari Age Gdln ACOG Testing 30-65 Normal [facility] Comment on above: Performed By: #### [id number] #### [facility] [address] [address] [address] Pasquale Tiwari DIAGNOSIS: Comment Normal [facility] Comment on above: Result Comment: NEGA TIVE FOR INTRAEPITHELIAL LESION OR MALIGNANCY. Performed at: WB Performed By: #### [id number] #### [facility] [address] [address] [address] Pasquale Tiwari HPV Aptima Negative Normal Negative [facility] Comment on above: Result Comment: This nucleic acid amplification test detects fourteen high-risk HPV types (16,18,31,33,35,39,45,51,52,56,58,59,66,68) without differentiation. Performed at: =G Performed By: #### [id number] #### [facility] [address] [place] [address] Dr. Pasquale Tiwari Methodology: Comment Normal [facility] Comment on above: Result Comment: This liquid based ThinPrep(R) pap test was screened with the use of an image guided system. Performed at: WB Performed By: #### [id number] #### [facility] [address] [place] [address] Dr. Pasquale Tiwari Note: Comment Normal [facility] Comment on above: Result Comment: The Pap smear is a screening test designed to aid in the detection of premalignant and malignant conditions of the uterine cervix. It is not a diagnostic procedure and should not be used as the sole means of detecting cervical cancer. Both false-positive and false-negative reports do occur. . Performed at: WB Performed By: #### [id number] #### [facility] [address] [place] [address] Dr. Pasquale Tiwari Performed by: Comment Normal [facility] Comment on above: Result Comment: Jasmin Smith, Tax Manager Cpa (ASCP) Performed at: WB Performed By: #### [id number] #### [facility] [address] [place] [address] Dr. Pasquale Tiwari Specimen adequacy: Comment Normal [facility] Comment on above: Result Comment: Sati sfactory for evaluation. No endocervical component is identified. Performed at: WB Performed By: #### [id number] #### [facility] [address] [place] [address] ABD/PELV W CONon [...] by: QUINCY PEREZ Date: 2020-12-28 23:37 Normal [facility] US PELVIS TRANSVAGon 021 US PELVIS [...] NIGHAT JOSE Date: 2020-12-29 10:09 Normal [facility] AMYLASEon 12-28-2020 Amylase [Catalytic activity/Vol] 36 U/L Normal 31-110 [facility] Comment on above: Performed By: #### L IPA, CMP, TORY #### [facility] [address] [place] [address] Dr. Pasquale Twiari CBC AUTO DIFFon 12-28-2020 BASO # 0.1 103/ul Normal 0.0-0.1 [facility] Comment on above: Performed By: #### C BC #### [facility] [address] [place] [address] Dr. Pasquale Tiwari Basophils/100 WBC (Bld) 0.5 % Normal 0.2-2.0 [facility] Comment on above: Performed By: #### C BC #### [facility] [address] [place] [address] Dr. Pasquale Tiwari EO # 0.7 103/ul Normal 0.0-0.7 [facility] Comment on above: Performed By: #### C BC #### [facility] [address] [place] [address] Dr. Pasquale Tiwari Eosinophils/100 WBC (Bld) 5.5 % Normal 0.9-7.0 [facility] Comment on above: Performed By: #### C BC #### [facility] [address] [place] [address] Dr. Pasquale Tiwari Erythrocyte distribution width (RBC) [Ratio] 18.0 % Critically high 11.0-15.0 [facility] Comment on above: Performed By: #### C BC #### [facility] [address] [place] [address] Dr. Pasquale Tiwari Hematocrit (Bld) [Volume fraction] 38.7 % Normal 36.0-48.0 [facility] Comment on above: Performed By: #### C BC #### [facility] [address] [place] [address] Dr. Pasquale Tiwari Hemoglobin (Bld) [Mass/Vol] 11.8 g/dL Critically low 12.0-16.0 [facility] Comment on above: Performed By: #### C BC #### [facility] [address] [place] [address] Dr. Pasquale Tiwari IG # 0.04 10e3/ul Critically high 0.00-0.03 [facility] Comment on above: Performed By: #### C BC #### [facility] [address] [place] [address] Dr. Pasquale Tiwari IG % 0.3 % Normal 0.0-0.5 [facility] Comment on above: Performed By: #### C BC #### [facility] [address] [place] [address] Dr. Pasquale Tiwari LYMPH # 3.2 103/ul Normal 1.2-3.8 [facility] Comment on above: Performed By: #### C BC #### [facility] [address] [place] [address] Dr. Pasquale Tiwari Lymphocytes/100 WBC (Bld) 24.9 % Normal 20.5-60.0 [facility] Comment on above: Performed By: #### C BC #### [facility] [address] [place] [address] Dr. Paqsuale Tiwari MANUAL DIFF REQ NO Normal [facility] Comment on above: Performed By: #### C BC #### [facility] [address] [place] [address] Dr. Pasquale Tiwari MCH (RBC) [Entitic mass] 19.4 pg Critically low 26.7-34.0 [facility] Comment on above: Performed By: #### C BC #### [facility] [address] [place] [address] Dr. Pasquale Tiwari MCHC (RBC) [Mass/Vol] 30.5 g/dL Normal 29.9-35.2 [facility] Comment on above: Performed By: #### C BC #### [facility] [address] [place] [address] Dr. Pasquale Tiwari MCV (RBC) [Entitic vol] 63.5 fL Critically low 81.0-99.0 [facility] Comment on above: Performed By: #### C BC #### [facility] [address] [place] [address] Dr. Pasquale Tiwari MONO # 0.8 103/ul Normal 0.3-0.8 [facility] Comment on above: Performed By: #### C BC #### [facility] [address] [place] [address] Dr. Pasquale Tiwari Monocytes/100 WBC (Bld) 6.5 % Normal 1.7-12.0 [facility] Comment on above: Performed By: #### C BC #### [facility] [address] [place] [address] Dr. Pasquale Tiwari NEUT # 8.1 103/ul Critically high 1.4-6.5 [facility] Comment on above: Performed By: #### C BC #### [facility] [address] [place] [address] Dr. Pasquale Tiwari Neutrophils/100 WBC (Bld) 62.3 % Normal 43.0-75.0 [facility] Comment on above: Performed By: #### C BC #### [facility] [address] [place] [address] Dr. Pasquale Tiwari Platelet mean volume (Bld) [Entitic vol] 9.6 fL Normal 9.5-13.5 [facility] Comment on above: Performed By: #### C BC #### [facility] [address] [place] [address] Dr. Pasquale Tiwari PLT 333 103/ul Normal 150-450 [facility] Comment on above: Performed By: #### C BC #### [facility] [address] [place], [place] [id number] Dr. Pasquale Tiwari RBC 6.09 106/ul Critically high 4.20-5.40 [facility] Comment on above: Result Comment: SLID E REVIEWED: MICROCYTOSIS NOTED Performed By: #### C BC #### [facility] [address] [place] [address] Dr. Pasquale Tiwari WBC 13.0 103/ul Critically high 4.0-11.0 [facility] Comment on above: Performed By: #### C BC #### [facility] [address] [address] [address] Pasquale MCGREGOR URINE PROFILEon 1 Bilirubin Ql (U) SMALL Abnormal NEGATIVE [facility] Comment on above: Performed By: #### E RUR, PREGU, UMICRO #### [facility] [address] [address] [address] Pasquale Tiwari Clarity (U) CLEAR Normal CLEAR [facility] Comment on above: Performed By: #### E RUR, PREGU, UMICRO #### [facility] [address] [place] [address] Dr. Pasquale Tiwari Color (U) DK. YELLOW Normal YELLOW [facility] Comment on above: Performed By: #### E RUR, PREGU, UMICRO #### [facility] [address] [place] [address] Dr. Pasquale Tiwari ERUErum A micrscopic examination will be performed if indicated. Normal [facility] Comment on above: Performed By: #### E RUR, PREGU, UMICRO #### [facility] [address] [place] [address] Dr. Pasquale Tiwari Glucose Ql (U) Negative Normal NEGATIVE [facility] Comment on above: Performed By: #### E RUR, PREGU, UMICRO #### [facility] [address] [place] [address] Dr. Pasquale Tiwari Hemoglobin Ql (U) LARGE Abnormal NEGATIVE [facility] Comment on above: Performed By: #### E RUR, PREGU, UMICRO #### [facility] [address] [address] [address] Pasquale Tiwari Ketones Ql (U) 15 mg/dl Abnormal NEGATIVE [facility] Comment on above: Performed By: #### E RUR, PREGU, UMICRO #### [facility] [address] [place] [address] Dr. Pasquale Tiwari LEUKOCYTES Negative Normal NEGATIVE [facility] Comment on above: Performed By: #### E RUR, PREGU, UMICRO #### [facility] [address] [address] [address] Pasquale Tiwari Nitrite Ql (U) Negative Normal NEGATIVE [facility] Comment on above: Performed By: #### E RUR, PREGU, UMICRO #### [facility] [address] [address] [address] Pasquale Tiwari pH (U) 5.5 [pH] Normal 5-9 [facility] Comment on above: Performed By: #### E RUR, PREGU, UMICRO #### [facility] [address] [address] [address] Pasquale Tiwari Protein (U) [Mass/Vol] 30 mg/dL Abnormal NEGATIVE/ TRACE [facility] Comment on above: Performed By: #### E RUR, PREGU, UMICRO #### [facility] [address] [address] [address] Pasquale Tiwari SPEC GRAVITY >=1.030 Abnormal 1.005-<=1.025 [facility] Comment on above: Performed By: #### E RUR, PREGU, UMICRO #### [facility] [address] [place] [address] Dr. Pasquale Tiwari UR MICRO IND INDICATED Normal [facility] Comment on above: Performed By: #### E RUR, PREGU, UMICRO #### [facility] [address] [address] [address] Pasquale Tiwari Urobilinogen Qn (U) 1.0 {Anuja'U}/dL Normal 0.2 - 1. 0 [facility] Comment on above: Performed By: #### E RUR, PREGU, UMICRO #### [facility] [address] [place] [address] Dr. Pasquale Tiwari LACTATE/LACTIC ACIDon 2020 Lactate [Moles/Vol] 1.5 mmol/L Normal 0.7-2.0 [facility] Comment on above: Performed By: #### L IPA, CMP, TORY #### [facility] [address] [place] [address] Dr. Pasquale Tiwari LIPASEon 12-28-2020 Lipase [Catalytic activity/Vol] 101.0 U/L Normal 23.0-300.0 [facility] Comment on above: Performed By: #### L IPA, CMP, TORY #### [facility] [address] [place] [address] Dr. Pasquale Tiwari URon 12-28-2020 , QUAL Negative Normal NEGATIVE [facility] Comment on above: Performed By: #### E RUR, PREGU, UMICRO #### [facility] [address] [address] [address] Pasquale Tiwari PROF 14(COMP METB)on 021 Albumin [Mass/Vol] 3.9 g/dL Normal 3.5-5.0 [facility] Comment on above: Performed By: #### L IPA, CMP, TORY #### [facility] [address] [place] [address] Dr. Pasquale Tiwari Albumin/Globulin [Mass ratio] 1.0 {ratio} Normal [facility] Comment on above: Performed By: #### L IPA, CMP, TORY #### [facility] [address] [place] [address] Dr. Pasquale Tiwari ALP [Catalytic activity/Vol] 105 U/L Normal 38-126 [facility] Comment on above: Performed By: #### L IPA, CMP, TORY #### [facility] [address] [place] [address] Dr. Pasquale Tiwari ALT [Catalytic activity/Vol] 22 U/L Normal 9-52 [facility] Comment on above: Performed By: #### L IPA, CMP, TORY #### [facility] [address] [place] [address] Dr. Pasquale Tiwari Anion gap [Moles/Vol] 11.9 mmol/L Normal [facility] Comment on above: Performed By: #### L IPA, CMP, TORY #### [facility] [address] [place] [address] Dr. Pasquale Tiwari AST [Catalytic activity/Vol] 17 U/L Normal 14-36 [facility] Comment on above: Performed By: #### L IPA, CMP, TORY #### [facility] [address] [place] [address] Dr. Pasquale Tiwari Bilirubin [Mass/Vol] 0.5 mg/dL Normal 0.2-1.3 [facility] Comment on above: Performed By: #### L IPA, CMP, TORY #### [facility] [address] [place] [address] Dr. Pasquale Tiwari Calcium [Mass/Vol] 9.3 mg/dL Normal 8.4-10.2 [facility] Comment on above: Performed By: #### L IPA, CMP, TORY #### [facility] [address] [place] [address] Dr. Pasquale Tiwari Chloride [Moles/Vol] 107 mmol/L Normal 98-107 [facility] Comment on above: Performed By: #### L IPA, CMP, TORY #### [facility] [address] [place] [address] Dr. Pasquale Tiwari CO2 [Moles/Vol] 26.4 mmol/L Normal 22.0-30.0 [facility] Comment on above: Performed By: #### L IPA, CMP, TORY #### [facility] [address] [place] [address] Dr. Pasquale Tiwari Creatinine [Mass/Vol] 1.11 mg/dL Critically high 0.52-1.04 [facility] Comment on above: Performed By: #### L IPA, CMP, TORY #### [facility] [address] [place] [address] Dr. Pasquale Tiwari EGFR-AF SALVADOREAN >60 Normal >=60 [facility] Comment on above: Performed By: #### L IPA, CMP, TORY #### [facility] [address] [place] [address] Dr. Pasquale Tiwari EGFR-NON AF SALVADOREAN 54 mL/min/1.73m2 Critically low >=60 [facility] Comment on above: Performed By: #### L IPA, CMP, TORY #### [facility] [address] [place], [place] [id number] Dr. Pasquale Tiwari Globulin (S) [Mass/Vol] 4.0 g/dL Normal [facility] Comment on above: Performed By: #### L IPA CMP, TORY #### [facility] [address] [place] [address] Dr. Pasquale Tiwari Glucose [Mass/Vol] 127 mg/dL Critically high 74-106 [facility] Comment on above: Performed By: #### L IPA CMP, TORY #### [facility] [address] [place] [address] Dr. Pasquale Tiwari Potassium [Moles/Vol] 3.3 mmol/L Critically low 3.4-5.0 [facility] Comment on above: Performed By: #### L IPA CMP, TORY #### [facility] [address] [place] [address] Dr. Pasquale Tiwari Protein [Mass/Vol] 7.9 g/dL Normal 6.1-8.2 [facility] Comment on above: Performed By: #### L IPA CMP, TORY #### [facility] [address] [place] [address] Dr. Pasquale Tiwari Sodium [Moles/Vol] 142 mmol/L Normal 137-145 [facility] Comment on above: Performed By: #### L IPA CMP, TORY #### [facility] [address] [place] [address] Dr. Pasquale Tiwari Urea nitrogen [Mass/Vol] 13.0 mg/dL Normal 7.0-17.0 [facility] Comment on above: Performed By: #### L IPA, CMP, TORY #### [facility] [address] [place] [address] Dr. Pasquale Tiwari Urea nitrogen/Creatinine [Mass ratio] 11.7 mg/mg Normal [facility] Comment on above: Performed By: #### L IPA, CMP, TORY #### [facility] [address] [place] [address] Dr. Pasquale Tiwari URINE MICROSCOPIC ONLYon BACTERIA TRACE Abnormal NONE SEEN [facility] Comment on above: Performed By: #### E RUR, PREGU, UMICRO #### [facility] [address] [address] [address] Pasquale Tiwari Bacteria identified Cx Nom (U) NOT INDICATED Normal [facility] [place] [facility] Comment on above: Performed By: #### E RUR, PREGU, UMICRO #### [facility] [address] [address] [address] Pasquale Tiwari CA OX CRYSTALS FEW Normal [facility] [place] [facility] Comment on above: Performed By: #### E RUR, PREGU, UMICRO #### [facility] [address] [address] [address] Pasquale Tiwari CAST NONE SEEN Normal NONE SEEN [facility] Comment on above: Performed By: #### E RUR, PREGU, UMICRO #### [facility] [address] [address] [address] Pasquale Tiwari Crystals LM Nom (Urine sed) SEEN Abnormal NONE SEEN [facility] Comment on above: Performed By: #### E RUR, PREGU, UMICRO #### [facility] [address] [address] [address] Pasquale Tiwari Epithelial cells LM Ql (Urine sed) MODERATE Abnormal NONE SEEN /RARE [facility] Comment on above: Performed By: #### E RUR, PREGU, UMICRO #### [facility] [address] [address] [address] Pasquale Tiwari MUCOUS LARGE Abnormal NONE SEEN [facility] Comment on above: Performed By: #### E RUR PREGU, UMICRO #### [facility] [address] [address] [address] Pasquale Tiwari RBC 5-10 Abnormal 0-2 [facility] Comment on above: Performed By: #### E RUR, PREGU, UMICRO #### [facility] [address] [address] [address] Pasquale Tiwari WBC 2-5 Abnormal NONE SEEN [facility] Comment on above: Performed By: #### E RUR, PREGU, UMICRO #### [facility] [address] [address] [address] Pasquale Tiwari ER Physician Documentationon 11-12-2017 ER Physician Documentation [facility] Patient: BRYCE VARGAS [address] : 1980 [place], [place] [address] Location: ER [phone] Unit #: [id number] ER Physician Documentation Service Date:11/08/17 ER Provider: [...] and management services were performed by the [facility]JOSE/Resident under my supervision/collabora tion with my participation. [...] on 11/08/17 0809 Report Signed by: Livia Clemetns PA-C on 11/12/17 1102 < > Report Signed by: Norbert Roca MD on 11/09/17 0826 < > Report Signed by: on Report Signed by: on Co-Signer: on Normal [facility] XR Cervical Spine Routineon 11-08-2017 XR Cervical Spine Routine [facility] Radiology Department Patient: BRYCE VARGAS [address] : 1980 Sex: Carol [place] [address] Location: [phone] [id number] Ordering Phys: Livia Clements PA-C Exam Date: [...] by: Daniel BARRAZA,Dee Marin on 11/08/17920 Normal [facility] XR Shoulder Right 2-3 Viewso n 11-08-2017 XR Shoulder Right 2-3 Views [facility] Radiology Department Patient: BRYCE VARGAS [address] : 1980 Sex: [place], [place] [address] Location: [place] [address] Unit #: [id number] Ordering Phys: Livia Clements PA-C Exam Date: [...] by: Daniel BARRAZA,Dee Marin on 11/08/17919 Normal [facility] Vital Signs Date Time Vital Sign Value Performing Clinician Facility 06-03-2022 13:30-0500 Body height 160.02 cm Elena Renetta Other [facility] Other 06-03-2022 13:30-0500 Body mass index (BMI) [Ratio] 45.34 kg/m2 Elena Renetta Other [facility] Other 06-03-2022 13:30-0500 Body temperature 98.2 [degF] Elena Renetta Other [facility] Other 06-03-2022 13:30-0500 Body weight 116.12 kg Elena Renetta Other [facility] Other 06-03-2022 13:30-0500 Respiratory rate 18 /min Elena Renetta Other [facility] Other 06-03-2022 13:30-0500 SaO2% (BldA) [Mass fraction] 97 % Elenashantell Jackson Other [facility] Other 02-06-2022 10:40-0400 Body height 160.02 cm Elena Jackson Other [facility] Other 02-06-2022 10:40-0400 Body mass index (BMI) [Ratio] 42.51 kg/m2 Elena Renetta Other [facility] Other 02-06-2022 10:40-0400 Body temperature 97.7 [degF] Elena Renetta Other [facility] Other 02-06-2022 10:40-0400 Body weight 108.86 kg Elena Renetta Other [facility] Other 02-06-2022 10:40-0400 Respiratory rate 18 /min Elena Vaughanmond Other [facility] Other 02-06-2022 10:40-0400 SaO2% (BldA) [Mass fraction] 96 % Elena Renetta Other [facility] Other Encounters Encounter Date Encounter Type Care Provider Facility Start: 06-03-2022 End: 06-03-2022 ambulatory Elena Renetta Other [facility] Other Start: 06-03-2022 Office outpatient vi sit 15 minutes Elena Renetta [facility] Start: 02-06-2022 End: 02-06-2022 ambulatory Elena Renetta Other [facility] Other Start: 02-06-2022 Office outpatient vi sit 15 minutes Elena Renetta [facility] Start: 09-21-2021 End: 09-21-2021 ambulatory Elena Renetta Other [facility] Other Start: 09-21-2021 Nursing evaluation o f patient and report Elena Jackson [facility] Start: 02-11-2021 Encounter for preprocedural laboratory examination DR BRANDEN MATIAS [facility] Start: 02-07-2021 Encounter for other preprocedural examination DR BRANDEN MATIAS [facility] Start: 02-07-2021 End: 02-07-[address] [...] End: 11-08-2017 Emergency department patient visit None Facility:[facility] Payers Date Payer Category Payer Unknown [id number] 06.01.83 [id number] 1980 Unknown [id number] . [id number] 1980 Unknown [id number] .. [id number] 1980 Unknown [id number] 1980 Unknown [id number] 1980 Unknown [id number] 1960 [facility] [id number] Social History Date Type Detail Facility Unknown if ever smoked [facility] Other Sex Assigned At Sex Assigned At Bir th [facility] Other Evaluation note 06-03-2022 Note Date & [...] no improvement in 2 to 3 days. [facility] Other Evaluation note 02-06-2022 Note Date & [...] no improvement in 2 to 3 days. [facility] Other Evaluation note 09-21-2021 Note Date & [...] Patient care instructions given in writting by [facility] At Home document. [facility] Other History general Narrative - Reported Note Date & Type Note Facility History general Narrative - Reported Type Medical History rheumatoid arthritis [facility] Other Summary Purpose Family History No Family History Records FoundNo Family History Records Found Advance Directives No Advanced Directives Records FoundNo Advanced Directives Records Found Additional Source Comments INFORMATION SOURCE (unrecogn ized section and content) DATE CREATED AUTHOR 11/12/2017 [facility] [employer] DATE CREATED AUTHOR AUTHOR'S ORGANIZ ATION 02/18/2021 [facility] REASON FOR VISIT (unrecogniz ed [...] BE BASED ON THE PRIMARY CLINICAL RECORDS. [facility] [employer] provides no warranty or guarantee of the accuracy or completeness of information in this document.
--- NOTE | 2023-09-06 04:23 | XR_ITS ---
The [address] [address] Patient Name: BRYCE VARGAS MRN: [id number] date: 1980 Sex: F Assigned Patient Location: ER Current Patient Location: ER Accession/Order Number: [id number] Exam Date: 09/06/2023 04:30 Report Date: 09/06/2023 05:07 At the request of: SUDHA MARKER Procedure: XR chest 2V EXAM: XR chest 2V HISTORY: cough technologist notes state cough, congestion and sore throat for 4 days. COMPARISON: Chest radiograph dated 01/19/2019. TECHNIQUE: PA and lateral views of the chest performed. FINDINGS: The trachea is midline. The cardiomediastinal silhouette and hilar shadows are stable and unremarkable. There are low lung volumes with resultant prominence and crowding of the interstitial markings within both lung thompson. There is no consolidation, pleural effusion or pulmonary vascular congestion. There is no pneumothorax or acute osseous abnormality. There is stable slight dextroscoliosis of the thoracic spine. XR/XR chest 2V IMPRESSION: There is no acute cardiopulmonary process. Electronically authenticated by: ELISA BARRIOS Date: 09/06/2023 05:07
--- NOTE | 2023-09-06 04:24 | ED.URI1 ---
HPI - URI/Sore Throat General Chief Complaint: Upper Respiratory Infection Stated Complaint: COUGH/SORE THROAT Time Seen by Provider: 09/06/23 04:07 Source: patient Limitations: no limitations History of Present Illness HPI Narrative: This 43-year-old female with a history of rheumatoid arthritis presents for evaluation of 4 to 5 days of sore throat, cough, chest congestion and nasal congestion as well as ear pain. She states that when she gets sick with symptoms like this her RA flares up and she requests an injection of steroids and Toradol. She has been taking Tylenol and Motrin for her symptoms and thinks she may have not spiked a fever because she has had these medications in her system. When her symptoms started she took several different kinds of allergy medications without relief. 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 She has mild nausea but denies any vomiting or diarrhea. She does not smoke. She denies any chest pain or shortness of breath. Her cough is mostly dry with occasional white phlegm. Related Data Allergies Allergy/AdvReac Type Severity Reaction Status Date / Time clarithromycin [From Biaxin] Allergy Unknown Verified 09/06/23 04:11 baclofen Allergy Unknown Uncoded 09/06/23 04:11 Review of Systems ROS Status of ROS 10 or more systems reviewed and unremarkable except as noted in history and below Exam Narrative Exam Narrative: Vital signs and Nursing Notes reviewed: She has a afebrile with a normal pulse, blood pressure is mildly elevated at 137/99, she is not hypoxic with pulse ox of 97% on room air General: Awake, alert, oriented, no acute distress, lying comfortably on the stretcher HEENT: Normocephalic atraumatic, mucous membranes are moist and pink, eyes are clear, normal conjunctiva, vision is grossly intact, posterior pharynx is normal in appearance. Tympanic membranes are normal bilaterally, her voice is hoarse, there is mild posterior pharyngeal cobblestoning in the posterior pharynx, there is no swelling of the tongue, uvula or pharyngeal soft tissues Neck: Supple, no meningeal signs, no anterior or posterior cervical lymphadenopathy, no stridor Chest: Lungs are clear to auscultation with good air entry, occasional bronchospastic cough, there is no wheezing rhonchi or rales appreciated no accessory muscle use, patient is speaking in complete sentences-no chest wall tenderness to palpation CVS: Regular rate and rhythm S1-S2, no murmurs rubs or gallops, pulses are brisk and equal bilaterally ABD: Soft, nondistended, nontender, no rebound guarding or rigidity, bowel sounds are normal, no pulsatile masses appreciated Extremities: Moving all extremities, no lower extremity tenderness or swelling noted, negative Homans' sign, pulses are brisk and equal bilaterally Skin: Normal in appearance without rash,pallor, petechiae or purpura Neuro: No focal deficits Constitutional Vital Signs, click to edit/add: Last Vital Signs Temp 97.7 F 09/06/23 04:11 Pulse 62 09/06/23 04:11 Resp 18 09/06/23 04:11 BP 137/99 H 09/06/23 04:11 Pulse Ox 97 09/06/23 04:11 O2 Del Method Room Air 09/06/23 04:11 Course Vital Signs Vital signs: Vital Signs Temperature 97.7 F 09/06/23 04:11 Pulse Rate 62 09/06/23 04:11 Respiratory Rate 18 09/06/23 04:11 Blood Pressure 137/99 H 09/06/23 04:11 Pulse Oximetry 97 09/06/23 04:11 Oxygen Delivery Method Room Air 09/06/23 04:11 Temperature 97.7 F 09/06/23 04:11 Pulse Rate 62 09/06/23 04:11 Respiratory Rate 18 09/06/23 04:11 Blood Pressure 137/99 H 09/06/23 04:11 Pulse Oximetry 97 09/06/23 04:11 Oxygen Delivery Method Room Air 09/06/23 04:11 MDM - URI/Sore Throat MDM Narrative Medical decision making narrative: This 43-year-old female with a history of rheumatoid arthritis presents for evaluation of 4 days of sore throat and dry cough. She states when she gets sick with an upper respiratory tract infection or other infection it triggers her rheumatoid arthritis and requests an injection of Solu-Medrol and Toradol. The patient has laryngitis, her voice is hoarse. There is no trismus or drooling. Posterior pharynx is normal in appearance with mild posterior pharyngeal cobblestoning. Tympanic membranes were clear. Her lungs are clear. She is not a smoker. Chest x-ray was reviewed by mariannelf and does not show any focal infiltrate, pneumothorax or other notable abnormality. She is negative for strep, influenza and COVID-19. The results of her labs were discussed with her. She requests a medrol dose pack. I offered her antibiotics due to her comorbidities and she is agreeable to a Rx for amoxil that she will use if she thinks she needs them and Rx for cough medicine, Bromfed DM. Lab Data Attestation: I reviewed the patient's lab results. Labs: Lab Results 09/06/23 Range/Units 04:30 Influenza Type A Ag Negative Influenza Type B Ag Negative SARS-CoV-2 Ag (CV2AG) Negative (NEGATIVE) Streptococcus Screen Negative Discharge Plan Discharge Stand Alone Forms: Portal Instructions Chief Complaint: Upper Respiratory Infection Clinical Impression: Viral upper respiratory tract infection with cough, Laryngitis Patient Disposition: Home, Self-Care Time of Disposition Decision: 05:17 Condition: Good Print Language: Italian Instructions: Upper Respiratory Infection (ED), Laryngitis (ED) Referrals: Physician,Non-Staff, MD [Primary Care Provider] - 1 week
[2023-09-06] MEDS: KETOROLAC TROMETHAMINE 30 MG/ML VIAL IM (04:38)
[2023-09-06] MEDS: METHYLPREDNISOLONE SOD SUCC PF 125 MG/2 ML VIAL IM (04:39)
[2023-09-06 04:55] LABS: Influenza Virus A Antigen Negative; Influenza Virus B Antigen Negative; Internal Control Within Normal Limits; Strep A Antigen Screen Negative
[2023-09-06 04:56] LABS: SARS-CoV-2 Ag NEGATIVE (NEGATIVE)
== END 2023-09-06 05:45 | disposition home or self-care (01) ==
PROVIDERS: Emergency Provider Emergency Medicine
DX: J06.9 Acute upper respiratory infection, unspecified (principal); R05.9 Cough, unspecified; J04.0 Acute laryngitis; Z20.822 Contact with and (suspected) exposure to COVID-19; M06.9 Rheumatoid arthritis, unspecified
CPT/HCPCS: 71046; 87070; 87804; 87811; 87880; 96372; 99284; J2919

== ENCOUNTER 2024-01-10 10:59 | Outpatient (RCR) | payer OTHER, SELFPAY | END 2024-03-12 09:19 | disposition home or self-care (01) | LOC: OT 10:59 | PROVIDERS: Visit Provider Orthopaedic Surgery | DX: M65.4 Radial styloid tenosynovitis [de Quervain] (principal) | CPT/HCPCS: 97035; 97140; 97166; 97530; G0283 ==

== ENCOUNTER 2024-06-08 15:33 | Emergency (ER) | payer BC, SELFPAY ==
[2024-06-08 15:39] VITALS: BP 157/85; PULSE 74; TEMP 36.8; O2SAT 96; BMI 44.3
--- OUTSIDE RECORDS SUMMARY | 2024-06-08 15:42 | XMS_ITS | CCD ---
Author Organization [facility] Care Team Providers Care Plastics Fabricator Name Role Phone None Unavailable Unavailable Norbert Roca Unavailable Unavailable KARASIK, DR OTERO Admitting Unavailable KARASIK, DR OTERO Consulting Unavailable KARASIK, DR OTERO Attending Unavailable HOUSE, DR HEART Primary Care Unavailable ETTA MARTINEZ Consulting Unavailable KARASIK, DR OTERO Admitting Unavailable [...] DR OTERO Attending Unavailable Elena Jackson Unavailable Marc Woodward MD Primary Care Provider MORALES PERRY Attending Unavailable MORALES PERRY Attending Unavailable MORALES PERRY Attending Unavailable GARY JOHNSON Attending Unavailable GARY JOHNSON Attending Unavailable MORALES PERRY Attending Unavailable MORALES PERRY Attending Unavailable MORALES PERRY Attending Unavailable Allergies Allergy Classification Reported Allergen(s) Allergy Type Date of Onset Reaction(s) Facility (18 sources) baclofen; Translations: [Baclofen] Drug Allergy 4 Unknown [facility] Repository (17 sources) clarithromycin; Translations: [Clarithromycin] Drug Allergy 2 Unknown [facility] Repository (1 source) Clarithromycin Drug Allergy [address] [facility] Repository (13 sources) Propoxyphene Drug Allergy 2 [facility] Medications Current Medications Medication Drug Class(es) Dates Sig (Normalized) Sig (Original) acetaminophen 500 mg oral tablet (3 sources) Start: 12-10-2023 End: 12-20-2023 take 1 tablet by mouth every four hours for pain acetaminophen (Tylenol Extra Strength) 500 MG tablet Indications: De Quervain's tenosynovitis Take 1 tablet (500 mg) by mouth every 4 (four) hours if needed for mild pain for up to 10 days 30 tablet 12/10/2023 12/20/2023 Active acetaminophen 250 mg / aspirin 250 mg / caffeine 65 mg oral tablet (13 sources) Platelet Aggregation Inhibitor, Nonsteroidal Anti-inflammatory Drug, Central Nervous System Stimulant, Methylxanthine take 1 tablet by mouth every six hours as needed aspirin-acetaminop hen-caffeine (Excedrin Migraine) 250-250-65 MG tablet Take 1 tablet by mouth every 6 (six) hours if needed Active amoxicillin 875 mg / clavulanate 125 mg oral tablet (1 source) Penicillin-class Antibacterial Start: 02-06-2022 take 1 tablet by mouth every twelve hours Amoxicillin-Pot Clavulanate 875-125 MG 1 tablet Orally every 12 hrs for 10 day(s) Jan, Active cephalexin 500 mg oral capsule (4 sources) Cephalosporin Antibacterial Start: 12-19-2023 End: 01-02-2024 cephalexin (Keflex) 500 MG capsule Indications: Skin wound from surgical incision Take 1 capsule (500 mg) by mouth in the morning and 1 capsule (500 mg) at noon and 1 capsule (500 mg) in the evening and 1 capsule (500 mg) before bedtime. Do all this for 10 days. 40 capsule 12/19/2023 01/02/2024 Discontinued (Therapy completed) fluticasone propionate 0.05 mg/actuat metered dose nasal [...] Tumor Necrosis Factor Gutierrez Simponi Aria Active ibuprofen 600 mg oral tablet (18 sources) Nonsteroidal Anti-inflammatory Drug Start: End: take 1 tablet by mouth every six hours for pain ibuprofen 600 MG tablet Indications: De Quervain's tenosynovitis Take 1 tablet (600 mg) by mouth every 6 (six) hours if needed for mild pain for up to 10 days 30 tablet 12/10/2023 12/20/2023 Active ibuprofen 800 MG tablet every 8 (eight) hours Active Ibuprofen Active Leucovorin (2 sources) Folate Analog Leucovorin Calci um Active Methotrexate (3 sources) Folate Analog Metabolic Inhibitor Methotrexate Active Completed/Discontinued Medications Medication Drug Class(es) Dates Sig (Normalized) Sig (Original) predniSONE 10 mg oral tablet (10 sources) Start: 01-11-2024 End: 04-22-2024 predniSONE (Deltasone) 10 MG tablet Indications: Left wrist pain 6 pills day 1 & 2, 5 pills day 3 & 4, 4 pills day 5 & 6, 3 pills day 7 & 8, 2 pills day 9 & 10, 1 pill day 11 & 12 42 tablet 03/11/2024 04/22/2024 Discontinued (Therapy completed) Start: 06-03-2022 take 1 tablet by sharmaine th every twelve hours predniSONE 20 MG 1 tablet Orally 2 times a day for 5 day(s) May, Active Start: 02-06-2022 take 1 tablet by sharmaine th every twelve hours predniSONE 20 MG 1 tablet Orally 2 times a day for 5 day(s) Jan, Active predniSONE Activ e Problems Active Problems Problem Classification Problem Date Documented Date [...] Onset: 02-17-2021 Other aftercare (1 source) Other usp (current) drug therapy; Translations: [OTH PENITENTIARY CURRENT DRUG THERAPY] Onset: 02-17-2021 Episodic Other connective tissue disease (6 sources) Radial styloid tenosynovitis; Translations: [Radial styloid tenosynovitis [de Quervain]] 02-02-2024 Episodic Other female genital disorders (1 source) [...] [CONTACT W/AND (SUSP) EXPOS COVID-19] Onset: 02-11-2021 Past or Other Problems Problem Classification Problem Date Documented Da te Episodic/Chronic Other injuries and conditions due to external causes (2 sources) Surgical incision wound of skin; Translations: [Other injury of unspecified body region, initial encounter] 12-19-2023 Episodic Results Test Name Value Interpretation Reference Range Facility COVID + FLU Quick Testingon 06-03-2022 SARS-CoV-2 (COVID-19) RNA CECIL+probe Ql (Unsp spec) Negative [employer] Other COVID + FLU Quick Testing Negative [employer] Other SARS-CoV-2 (COVID-19) RNA NA A+probe Ql (Resp)on 02-06-2022 SARS-CoV-2 (COVID-19) RNA CECIL+probe Ql (Unsp spec) Negative [employer] Other COVID Quick Testingon 2021 Result Negative [employer] Other Quick Fluon 09-21-2021 FLUAV Ab CF (S) [Titer] Negative [facility] [employer] Other FLUBV Ab CF (S) [Titer] Negative [employer] Other URon 02-07-2021 , QUAL Negative Normal NEGATIVE [facility] Comment on above: Performed By: #### L IPA, CMP, TORY #### [facility] [address] [place] [id number] Pasquale Tiwari Covid-19 PCR (CVDTB)on 01-15 SARS-CoV-2 (COVID-19) RNA CECIL+probe Ql (Unsp spec) Not detected Normal NOT DETECTED [facility] Comment on above: Result Comment: This test is not yet approved or cleared by the [place] FDA. When there are no FDA-approved or cleared tests available, and other criteria are met, FDA can make tests available under an emergency access mechanism called an Emergency Use Authorization (EUA). The EUA for this test is supported by the Wood [employer]isher Apprentice of Health and Human Service's (HHS's) declaration [...] By: #### L IPA, CMP, TORY #### [facility] [address] [place] [address] Pasquale Tiwari CBC AUTO DIFFon 02-01-2021 BASO # 0.0 103/ul Normal 0.0-0.1 [facility] Comment on above: Performed By: #### L IPA, CMP, TORY #### [facility] [address] [place], [place] [address] Dr. Pasquale Tiwari Basophils/100 WBC (Bld) 0.4 % Normal 0.2-2.0 [facility] Comment on above: Performed By: #### L IPA, CMP, TORY #### [facility] [address] [place] [address] Dr. Pasquale Tiwari EO # 0.4 103/ul Normal 0.0-0.7 [facility] Comment on above: Performed By: #### L IPA, CMP, TORY #### [facility] [address] [place] [address] Dr. Pasquale Tiwari Eosinophils/100 WBC (Bld) 4.3 % Normal 0.9-7.0 [facility] Comment on above: Performed By: #### L IPA, CMP, TORY #### [facility] [address] [place] [address] Dr. Pasquale Tiwari Erythrocyte distribution width (RBC) [Ratio] 17.7 % Critically high 11.0-15.0 [facility] Comment on above: Performed By: #### L IPA, CMP, TORY #### [facility] [address] [place] [address] Dr. Pasquale Tiwari Hematocrit (Bld) [Volume fraction] 33.5 % Critically low 36.0-48.0 [facility] Comment on above: Performed By: #### L IPA, CMP, TORY #### [facility] [address] [place] [address] Dr. Pasquale Tiwari Hemoglobin (Bld) [Mass/Vol] 10.1 g/dL Critically low 12.0-16.[address] [facility] Comment on above: Performed By: #### L IPA, CMP, TORY #### [facility] [address] [place] [address] Dr. Pasquale Tiwari IG # 0.02 10e3/ul Normal 0.00-0.[address] [facility] Comment on above: Performed By: #### L IPA, CMP, TORY #### [facility] [address] [place] [address] Dr. Pasquale Tiwari IG % 0.2 % Normal 0.0-0.[address] [facility] Comment on above: Performed By: #### L IPA, CMP, TORY #### [facility] [address] [place], [place] [id number] Dr. Pasquale Tiwari LYMPH # 4.1 103/ul Critically high 1.2-3.8 [facility] Comment on above: Performed By: #### L IPA, CMP, TORY #### [facility] [address] [place] [address] Dr. Pasquale Tiwari Lymphocytes/100 WBC (Bld) 40.8 % Normal 20.5-60.[address] [facility] Comment on above: Performed By: #### L IPA, CMP, TORY #### [facility] [address] [place] [address] Dr. Pasquale Tiwari MANUAL DIFF REQ NO Normal [facility] Comment on above: Performed By: #### L IPA, CMP, TORY #### [facility] [address] [place] [address] Dr. Pasquale Tiwari MCH (RBC) [Entitic mass] 19.3 pg Critically low 26.7-34.[address] [facility] Comment on above: Performed By: #### L IPA, CMP, TORY #### [facility] [address] [place] [address] Dr. Pasquale Tiwari MCHC (RBC) [Mass/Vol] 30.1 g/dL Normal 29.9-35.[address] [facility] Comment on above: Performed By: #### L IPA, CMP, TORY #### [facility] [address] [place] [address] Dr. Pasquale Tiwari MCV (RBC) [Entitic vol] 64.2 fL Critically low 81.0-99.[address] [facility] Comment on above: Performed By: #### L IPA, CMP, TORY #### [facility] [address] [place] [address] Dr. Pasquale Tiwari MONO # 0.7 103/ul Normal 0.3-0.[address] [facility] Comment on above: Performed By: #### L IPA, CMP, TORY #### [facility] [address] [place] [address] Dr. Pasquale Tiwari Monocytes/100 WBC (Bld) 6.7 % Normal 1.7-12.[address] [facility] Comment on above: Performed By: #### L IPA, CMP, TORY #### [facility] [address] [place] [address] [address] Pasquale Tiwari NEUT # 4.7 103/ul Normal 1.4-6.5 [facility] Comment on above: Performed By: #### L IPA, CMP, TORY #### [facility] [address] [place] [address] Dr. Pasquale Tiwari Neutrophils/100 WBC (Bld) 47.6 % Normal 43.0-75.0 [facility] Comment on above: Performed By: #### L IPA, CMP, TORY #### [facility] [address] [place] [address] Dr. Pasquale Tiwari Platelet mean volume (Bld) [Entitic vol] 9.1 fL Critically low 9.5-13.5 [facility] Comment on above: Performed By: #### L IPA, CMP, TORY #### [facility] [address] [place] [address] Dr. Pasquale Tiwari PLT 362 103/ul Normal 150-450 [facility] Comment on above: Performed By: #### L IPA, CMP, TORY #### [facility] [address] [place] [address] Dr. Pasquale Tiwari RBC 5.22 106/ul Normal 4.20-5.40 [facility] Comment on above: Performed By: #### L IPA, CMP, TORY #### [facility] [address] [place] [address] Dr. Pasquale Tiwari WBC 10.0 103/ul Normal 4.0-11.[address] [facility] Comment on above: Performed By: #### L IPA, CMP, TORY #### [facility] [address] [place] [address] Dr. Pasquale Tiwari PAP ACOG PANEL 2: 30 to 65on 01-11-2021 . . Normal [facility] Comment on above: Result Comment: Perf ormed at: WB Performed By: #### [id number] #### [facility] [address] [place] [address] Dr. Pasquale Tiwari Age Gdln ACOG Testing 30-65 Normal [facility] Comment on above: Performed By: #### [id number] #### [facility] [address] [place] [address] [address] Pasquale Tiwari DIAGNOSIS: Comment Normal [facility] Comment on above: Result Comment: NEGA TIVE FOR INTRAEPITHELIAL LESION OR MALIGNANCY. Performed at: WB Performed By: #### [id number] #### [facility] [address] [place] [address] [address] Pasquale Tiwari HPV Aptima Negative Normal Negative [facility] Comment on above: Result Comment: This nucleic acid amplification test detects fourteen high-risk HPV types (16,18,31,33,35,39,45,51,52,56,58,59,66,68) without differentiation. Performed at: =G Performed By: #### [id number] #### [facility] [address] [place] [address] Dr. Pasquale Tiwari Methodology: Comment Normal [facility] Comment on above: Result Comment: This liquid based ThinPrep(R) pap test was screened with the use of an image guided system. Performed at: WB Performed By: #### [id number] #### [facility] [address] [place] [address] Dr. Pasquale Tiwari Note: Comment Normal [facility] Comment on above: Result Comment: The Pap smear is a screening test designed to aid in the detection of premalignant and malignant conditions of the uterine cervix. It is not a diagnostic procedure and should not be used as the sole means of detecting cervical cancer. Both false-positive and false-negative reports do occur. . Performed at: WB Performed By: #### [id number] #### [facility] [address] [place] [address] [address] Pasquale Tiwari Performed by: Comment Normal [facility] Comment on above: Result Comment: Jasmin Smith, Core Winder (ASCP) Performed at: WB Performed By: #### [id number] #### [facility] [address] [place] [address] [address] Pasquale Tiwari Specimen adequacy: Comment Normal [facility] Comment on above: Result Comment: Sati sfactory for evaluation. No endocervical component is identified. Performed at: WB Performed By: #### [id number] #### [facility] [address] [place] [address] ABD/PELV W CONon [...] by: QUINCY PEREZ Date: 2020-12-28 23:37 Normal [facility] US PELVIS TRANSVAGon 021 US PELVIS TRANSVAG [...] NIGHAT JOSE Date: 2020-12-29 10:09 Normal [facility] AMYLASEon 12-28-2020 Amylase [Catalytic activity/Vol] 36 U/L Normal 31-[address] [facility] Comment on above: Performed By: #### L IPA, CMP, TORY #### [facility] [address] [place] [address] Dr. Pasquale Tiwari CBC AUTO DIFFon 12-28-2020 BASO # 0.1 103/ul Normal 0.0-0.[address] [facility] Comment on above: Performed By: #### C BC #### [facility] [address] [place] [address] Dr. Pasquale Tiwari Basophils/100 WBC (Bld) 0.5 % Normal 0.2-2.[address] [facility] Comment on above: Performed By: #### C BC #### [facility] [address] [place] [address] Dr. Pasquale Tiwari EO # 0.7 103/ul Normal 0.0-0.7 [facility] Comment on above: Performed By: #### C BC #### [facility] [address] [place] [address] Dr. Pasquale Tiwari Eosinophils/100 WBC (Bld) 5.5 % Normal 0.9-7.0 [facility] Comment on above: Performed By: #### C BC #### [facility] [address] [place] [address] Dr. Pasquale Tiwari Erythrocyte distribution width (RBC) [Ratio] 18.0 % Critically high 11.0-15.0 [facility] Comment on above: Performed By: #### C BC #### [facility] [address] [place] [address] Dr. Pasquale Tiwari Hematocrit (Bld) [Volume fraction] 38.7 % Normal 36.0-48.0 [facility] Comment on above: Performed By: #### C BC #### [facility] [address] [place] [address] Dr. Pasquale Tiwari Hemoglobin (Bld) [Mass/Vol] 11.8 g/dL Critically low 12.0-16.0 [facility] Comment on above: Performed By: #### C BC #### [facility] [address] [place] [address] Dr. Pasquale Tiwari IG # 0.04 10e3/ul Critically high 0.00-0.03 [facility] Comment on above: Performed By: #### C BC #### [facility] [address] [place] [address] Dr. Pasquale Tiwari IG % 0.3 % Normal 0.0-0.5 [facility] Comment on above: Performed By: #### C BC #### [facility] [address] [place] [address] Dr. Pasquale Tiwari LYMPH # 3.2 103/ul Normal 1.2-3.[address] [facility] Comment on above: Performed By: #### C BC #### [facility] [address] [place] [address] Dr. Pasquale Tiwari Lymphocytes/100 WBC (Bld) 24.9 % Normal 20.5-60.0 [facility] Comment on above: Performed By: #### C BC #### [facility] [address] [place] [address] Dr. Pasquale Tiwari MANUAL DIFF REQ NO Normal [facility] Comment on above: Performed By: #### C BC #### [facility] [address] [place] [address] Dr. Pasquale Tiwari MCH (RBC) [Entitic mass] 19.4 pg Critically low 26.7-34.0 [facility] Comment on above: Performed By: #### C BC #### [facility] [address] [place] [address] Dr. Pasquale Tiwari MCHC (RBC) [Mass/Vol] 30.5 g/dL Normal 29.9-35.2 [facility] Comment on above: Performed By: #### C BC #### [facility] [address] [place] [address] Dr. Pasquale Tiwari MCV (RBC) [Entitic vol] 63.5 fL Critically low 81.0-99.0 [facility] Comment on above: Performed By: #### C BC #### [facility] [address] [place] [address] Dr. Pasquale Tiwari MONO # 0.8 103/ul Normal 0.3-0.8 [facility] Comment on above: Performed By: #### C BC #### [facility] [address] [place] [address] Dr. Pasquale Tiwari Monocytes/100 WBC (Bld) 6.5 % Normal 1.7-12.0 [facility] Comment on above: Performed By: #### C BC #### [facility] [address] [place] [address] Dr. Pasquale Tiwari NEUT # 8.1 103/ul Critically high 1.4-6.5 [facility] Comment on above: Performed By: #### C BC #### [facility] [address] [place] [address] Dr. Pasquale Tiwari Neutrophils/100 WBC (Bld) 62.3 % Normal 43.0-75.0 [facility] Comment on above: Performed By: #### C BC #### [facility] [address] [place] [address] Dr. Pasquale Tiwari Platelet mean volume (Bld) [Entitic vol] 9.6 fL Normal 9.5-13.5 [facility] Comment on above: Performed By: #### C BC #### [facility] [address] [place] [address] Dr. Pasquale Tiwari PLT 333 103/ul Normal 150-[address] [facility] Comment on above: Performed By: #### C BC #### [facility] [address] [place] [address] Dr. Pasquale Tiwari RBC 6.09 106/ul Critically high 4.20-5.40 [facility] Comment on above: Result Comment: SADAFID E REVIEWED: MICROCYTOSIS NOTED Performed By: #### C BC #### [facility] [address] [place] [address] Dr. Pasquale Tiwari WBC 13.0 103/ul Critically high 4.0-11.0 [facility] Comment on above: Performed By: #### C BC #### [facility] [address] [place] [address] Dr. Pasquale Tiwari ER URINE PROFILEon 1 Bilirubin Ql (U) SMALL Abnormal NEGATIVE [facility] Comment on above: Performed By: #### KELSY BLACK UMICRO #### [facility] [address] [place] [address] Dr. Pasquale Tiwari Clarity (U) CLEAR Normal CLEAR [facility] Comment on above: Performed By: #### NILS BLACKU UMICRO #### [facility] [address] [place] [address] Dr. Pasquale Tiwari Color (U) DK. YELLOW Normal YELLOW [facility] Comment on above: Performed By: #### NILS BLACKU UMICRO #### [facility] [address] [place] [address] Dr. Pasquale Tiwari ERUAHErum A micrscopic examination will be performed if indicated. Normal [facility] Comment on above: Performed By: #### E RUR PREGU UMICRO #### [facility] [address] [place] [address] Dr. Pasquale Tiwari Glucose Ql (U) Negative Normal NEGATIVE [facility] Comment on above: Performed By: #### E RUR, PREGU, UMICRO #### [facility] [address] [place] [address] Dr. aPsquale Tiwari Hemoglobin Ql (U) LARGE Abnormal NEGATIVE [facility] Comment on above: Performed By: #### E RUR, PREGU, UMICRO #### [facility] [address] [place] [address] Dr. Pasquale Tiwari Ketones Ql (U) 15 mg/dl Abnormal NEGATIVE [facility] Comment on above: Performed By: #### E RUR, PREGU, UMICRO #### [facility] [address] [place] [address] Dr. Pasquale Tiwari LEUKOCYTES Negative Normal NEGATIVE [facility] Comment on above: Performed By: #### E RUR, PREGU, UMICRO #### [facility] [address] [place] [address] Dr. Pasquale Tiwari Nitrite Ql (U) Negative Normal NEGATIVE [facility] Comment on above: Performed By: #### E RUR, PREGU, UMICRO #### [facility] [address] [place] [address] Dr. Pasquale Tiwari pH (U) 5.5 [pH] Normal 5-9 [facility] Comment on above: Performed By: #### E RUR, PREGU, UMICRO #### [facility] [address] [place] [address] Dr. Pasquale Tiwari Protein (U) [Mass/Vol] 30 mg/dL Abnormal NEGATIVE/ TRACE [facility] Comment on above: Performed By: #### E RUR, PREGU, UMICRO #### [facility] [address] [place] [address] Dr. Pasquale Tiwari SPEC GRAVITY >=1.030 Abnormal 1.005-<=1.025 [facility] Comment on above: Performed By: #### E RUR, PREGU, UMICRO #### [facility] Laboratory [address] [place] [address] Dr. Pasquale Tiwari UR MICRO IND INDICATED Normal [facility] Comment on above: Performed By: #### E RUR, PREGU, UMICRO #### [facility] Laboratory [address] [place] [address] Dr. Pasquale Tiwari Urobilinogen Qn (U) 1.0 {Anuja'U}/dL Normal 0.2 - 1. 0 [facility] Comment on above: Performed By: #### E RUR, PREGU, UMICRO #### [facility] Laboratory [address] [place] [address] Dr. Pasquale Tiwari LACTATE/LACTIC ACIDon 2020 Lactate [Moles/Vol] 1.5 mmol/L Normal 0.7-2.0 [facility] Comment on above: Performed By: #### L IPA, CMP, TORY #### [facility] Laboratory [address] [place] [address] Dr. Pasquale Tiwari LIPASEon 12-28-2020 Lipase [Catalytic activity/Vol] 101.0 U/L Normal 23.0-300.0 [facility] Comment on above: Performed By: #### L IPA, CMP, TORY #### [facility] Laboratory [address] [place] [address] Dr. Pasquale Tiwari URon 12-28-2020 , QUAL Negative Normal NEGATIVE [facility] Comment on above: Performed By: #### E RUR, PREGU, UMICRO #### [facility] Laboratory [address] [place] [address] Dr. Pasquale Tiwari PROF 14(COMP METB)on 021 Albumin [Mass/Vol] 3.9 g/dL Normal 3.5-5.0 [facility] Comment on above: Performed By: #### L IPA, CMP, TORY #### [facility] Laboratory [address] [place] [address] Dr. Pasquale Tiwari Albumin/Globulin [Mass ratio] 1.0 {ratio} Normal [facility] Comment on above: Performed By: #### L IPA, CMP, TORY #### [facility] Laboratory [address] [place] [address] Dr. Pasquale Tiwari ALP [Catalytic activity/Vol] 105 U/L Normal 38-126 [facility] Comment on above: Performed By: #### L IPA, CMP, TORY #### [facility] Laboratory [address] [address] [address] Pasquale Tiwari ALT [Catalytic activity/Vol] 22 U/L Normal 9-52 [facility] Comment on above: Performed By: #### L IPA, CMP, TORY #### [facility] Laboratory [address] [address] [address] Pasquale Tiwari Anion gap [Moles/Vol] 11.9 mmol/L Normal [facility] Comment on above: Performed By: #### L IPA, CMP, TORY #### [facility] Laboratory [address] [place] [address] Dr. Pasquale Tiwari AST [Catalytic activity/Vol] 17 U/L Normal 14-36 [facility] Comment on above: Performed By: #### L IPA, CMP, TORY #### [facility] Laboratory [address] [address] [address] Pasquale Tiwari Bilirubin [Mass/Vol] 0.5 mg/dL Normal 0.2-1.3 [facility] Comment on above: Performed By: #### L IPA, CMP, TORY #### [facility] Laboratory [address] [place] [address] Dr. Pasquale Tiwari Calcium [Mass/Vol] 9.3 mg/dL Normal 8.4-10.2 [facility] Comment on above: Performed By: #### L IPA, CMP, TORY #### [facility] Laboratory [address] [place] [address] Dr. Pasquale Tiwari Chloride [Moles/Vol] 107 mmol/L Normal 98-[address] [facility] Comment on above: Performed By: #### L IPA, CMP, TORY #### [facility] Laboratory [address] [place] [address] Dr. Pasquale Tiwari CO2 [Moles/Vol] 26.4 mmol/L Normal 22.0-30.0 [facility] Comment on above: Performed By: #### L IPA, CMP, TORY #### [facility] Laboratory [address] [address] [address] Pasquale Tiwari Creatinine [Mass/Vol] 1.11 mg/dL Critically high 0.52-1.04 [facility] Comment on above: Performed By: #### L IPA, CMP, TORY #### [facility] Laboratory [address] [address] [address] Pasquale Tiwari EGFR-AF BANGLADESHI >60 Normal >=60 [facility] Comment on above: Performed By: #### L IPA, CMP, TORY #### [facility] Laboratory [address] [address] [address] Pasquale Tiwari EGFR-NON AF BANGLADESHI 54 mL/min/1.73m2 Critically low >=60 [facility] Comment on above: Performed By: #### L IPA, CMP, TORY #### [facility] Laboratory [address] [place] [address] Dr. Pasquale Tiwari Globulin (S) [Mass/Vol] 4.0 g/dL Normal [facility] Comment on above: Performed By: #### L IPA, CMP, TORY #### [facility] Laboratory [address] [address] [address] Pasquale Tiwari Glucose [Mass/Vol] 127 mg/dL Critically high 74-106 T [facility] Comment on above: Performed By: #### L IPA, CMP, TORY #### [facility] Laboratory [address] [place] [address] Dr. Pasquale Tiwari Potassium [Moles/Vol] 3.3 mmol/L Critically low 3.4-5.0 [facility] Comment on above: Performed By: #### L IPA, CMP, TORY #### [facility] [address] [address] [address] Pasquale Tiwari Protein [Mass/Vol] 7.9 g/dL Normal 6.1-8.2 [facility] Comment on above: Performed By: #### L IPA, CMP, TORY #### [facility] [address] [address] [address] Pasquale Tiwari Sodium [Moles/Vol] 142 mmol/L Normal 137-145 [facility] Comment on above: Performed By: #### L IPA, CMP, TORY #### [facility] Laboratory [address] [address] [address] Pasquale Tiwari Urea nitrogen [Mass/Vol] 13.0 mg/dL Normal 7.0-17.[address] [facility] Comment on above: Performed By: #### L IPA, CMP, TORY #### [facility] Laboratory [address] [address] [address] Pasquale Tiwari Urea nitrogen/Creatinine [Mass ratio] 11.7 mg/mg Normal [facility] Comment on above: Performed By: #### L IPA, CMP, TORY #### [facility] Laboratory [address] [address] [address] Pasquale Tiwari URINE MICROSCOPIC ONLYon BACTERIA TRACE Abnormal NONE SEEN The [facility] Comment on above: Performed By: #### E RUR, PREGU, UMICRO #### [facility] Laboratory [address] [place] [address] Dr. Pasquale Tiwari Bacteria identified Cx Nom (U) NOT INDICATED Normal [facility] Comment on above: Performed By: #### E RUR, PREGU, UMICRO #### [facility] Laboratory [address] [address] [address] Pasquale Tiwari CA OX CRYSTALS FEW Normal [facility] Comment on above: Performed By: #### E RUR, PREGU, UMICRO #### [facility] Laboratory [address] [place] [address] Dr. Pasquale Tiwari CAST NONE SEEN Normal NONE SEEN The [facility] Comment on above: Performed By: #### E RUR, PREGU, UMICRO #### [facility] Laboratory [address] [address] [address] Pasquale Tiwari Crystals LM Nom (Urine sed) SEEN Abnormal NONE SEEN The [facility] Comment on above: Performed By: #### E RUR, PREGU, UMICRO #### [facility] Laboratory [address] [address] [address] Pasquale Tiwari Epithelial cells LM Ql (Urine sed) MODERATE Abnormal NONE SEEN /RARE The [facility] Comment on above: Performed By: #### E RUR, PREGU, UMICRO #### [facility] Laboratory [address] [place], [place] [address] Dr. Pasquale Tiwari MUCOUS LARGE Abnormal NONE SEEN The [facility] Comment on above: Performed By: #### E RUR PREGU, UMICRO #### [facility] Laboratory [address] [place], [place] [address] Dr. Pasquale Tiwari RBC 5-10 Abnormal 0-[address] [facility] Comment on above: Performed By: #### E RURNILSU UMICRO #### [facility] Laboratory [address] [place], [place] [address] Dr. Pasquale Tiwari WBC 2-5 Abnormal NONE SEEN The [facility] Comment on above: Performed By: #### KELSY BLACK UMICRO #### [facility] Laboratory [address] [place], [place] [address] Dr. Pasquale Tiwari ER Physician Documentationon 11-12-2017 ER Physician Documentation [facility] Patient: RUPA GONZALEZ [address] : 1980 [place], [place] [address] Location: ER [phone] Unit #: [id number] ER Physician Documentation Service Date:11/08/17 ER Provider: [...] and ROM. Dr. Roca agrees to JUICE Infante, POC. All questions and concerns were addressed. - Supervision/Review Statement Evaluation and management services were performed by the BELLY ROLLER/JOSE/Resident under my supervision/collabora tion with my participation. I have reviewed all pertinent clinical information, including history, physical exam and plan. Dr. Norbert Rcoa. - Scribe Attestation By electronically signing this [...] Dictated by: Livia Clements PA-C on 11/08/17 08 Transcribed by: Livia Clements PA-C on 11/08/17 0809 Report Signed by: Livia Clements PA-C on 11/12/17 1102 < > Report Signed by: Norbert Roca MD on 11/09/17825 < > Report Signed by: on Report Signed by: on Co-Signer: on Normal [facility] XR Cervical Spine Routineon 11-08-2017 XR Cervical Spine Routine [facility] Radiology Department Patient: RUPA GONZALEZ [address] : 1980 Sex: [place] [address] [place] [address] Location: [place] [address] Unit #: [id number] Ordering Phys: Livia Clements PA-C Exam Date: [...] by: Daniel BARRAZA,Dee Marin on 11/08/17920 Normal [facility] XR Shoulder Right 2-3 Viewso n 11-08-2017 XR Shoulder Right 2-3 Views [facility] Radiology Department Patient: RUPA GONZALEZ [address] : 1980 Sex: [place], [place] [address] Location: [facility] [phone] [id number] Ordering Phys: Livia Clements PA-C Exam Date: [...] by: Daniel BARRAZA,Dee Marin on 11/08/17919 Normal [facility] Vital Signs Date Time Vital Sign Value Performing Clinician Facility 04-22-2024 16:20-0500 Body height 160 cm Morales Perry DO Work Phone: [facility] 04-22-2024 16:20-0500 Body mass index (BMI) [Ratio] 42.51 kg/m2 Morales Perry DO Work Phone: [facility] 04-22-2024 16:20-0500 Body weight 108.86 kg Morales Perry DO Work Phone: [facility] 01-31-2024 10:22-0400 Body height 160 cm Morales Perry DO Work Phone: [facility] 01-31-2024 10:22-0400 Body mass index (BMI) [Ratio] 42.51 kg/m2 Morales Perry DO Work Phone: [facility] 01-31-2024 10:22-0400 Body temperature 97.5 [degF] Morales Perry DO Work Phone: [facility] 01-31-2024 10:22-0400 Body weight 108.86 kg Morales Perry DO Work Phone: [facility] 12-19-2023 14:27-0400 Body height 160 cm [facility] PA Work Phone: [facility] 12-19-2023 14:27-0400 Body mass index (BMI) [Ratio] 42.51 kg/m2 [facility] PA Work Phone: [facility] 12-19-2023 14:27-0400 Body temperature 97.39 [degF] [facility] PA Work Phone: [facility] 12-19-2023 14:27-0400 Body weight 108.86 kg [facility] PA Work Phone: [facility] 06-03-2022 13:30-0500 Body height 160.02 cm Elena Jackson Other [facility] Other 06-03-2022 13:30-0500 Body mass index (BMI) [Ratio] 45.34 kg/m2 Elena Jackson Other [employer] Other 06-03-2022 13:30-0500 Body temperature 98.2 [degF] Elena Jackson Other [employer] Other 06-03-2022 13:30-0500 Body weight 116.12 kg Elena Jackson Other [employer] Other 06-03-2022 13:30-0500 Respiratory rate 18 /min Elena Jackson Other [employer] Other 06-03-2022 13:30-0500 SaO2% (BldA) [Mass fraction] 97 % Elena Jackson Other [employer] Other 02-06-2022 10:40-0400 Body height 160.02 cm Elena Jackson Other [employer] Other 02-06-2022 10:40-0400 Body mass index (BMI) [Ratio] 42.51 kg/m2 Elena Jackson Other [employer] Other 02-06-2022 10:40-0400 Body temperature 97.7 [degF] Elena Jackson Other [employer] Other 02-06-2022 10:40-0400 Body weight 108.86 kg Elena Jackson Other [employer] Other 02-06-2022 10:40-0400 Respiratory rate 18 /min Elena Jackson Other [employer] Other 02-06-2022 10:40-0400 SaO2% (BldA) [Mass fraction] 96 % Elena Jackson Other [employer] Other Encounters Encounter Date Encounter Type Care Provider Facility Start: 04-22-2024 End: 04-22-2024 Patient encounter procedure Morales Perry DO Work Phone: [facility] Comment on above: De Jason's tenosy novitis (Primary Dx) Start: 04-22-2024 End: 04-22-2024 ambulatory MORALES PERRY Not Available Start: 04-22-2024 End: 04-22-2024 Bamboo flowsheet Morales Wilkins Brown DO Work Phone: [facility] Start: 04-22-2024 End: 04-22-2024 Bamboo flowsheet Morales Wilkins Brown DO Work Phone: [facility] Start: 03-11-2024 End: 03-11-2024 Bamboo flowsheet Morales Wilkins Brown DO Work Phone: [facility] Start: 03-11-2024 End: 03-11-2024 Bamboo flowsheet Morales Wilkins Brown DO Work Phone: [facility] Start: 03-11-2024 End: 03-11-2024 ambulatory MORALES Claudette ORLANDO Not Available Start: 01-31-2024 End: 01-31-2024 Patient encounter procedure Morales A Orlando DO Work Phone: [facility] Comment on above: De Querwillis's tenosy novitis (Primary Dx) Start: 01-31-2024 End: 01-31-2024 ambulatory MORALES Claudette ORLANDO Not Available Start: 01-02-2024 End: 01-02-2024 Bamboo flowsheet Gary Johnson PA Work Phone: [facility] Start: 01-02-2024 End: 01-02-2024 Bamboo flowsheet Gary Johnson PA Work Phone: [facility] Start: 01-02-2024 End: 01-02-2024 Patient encounter procedure Gary Johnson PA Work Phone: [facility] Comment on above: De Quervain's tenosy novitis Start: 01-02-2024 End: 01-02-2024 ambulatory GARY JOHNSON Not Available Start: 12-19-2023 End: 12-19-2023 Patient encounter procedure Gary Johnson PA Work Phone: [facility] Comment on above: Skin wound from surg ical incision (Primary Dx) Start: 12-19-2023 End: 12-19-2023 ambulatory GARY Danielson SETH Not Available Start: 12-19-2023 End: 12-19-2023 Bamboo flowsheet Gary Johnson PA Work Phone: [facility] Start: 12-19-2023 End: 12-19-2023 Bamboo flowsheet Gary Johnson PA Work Phone: [facility] Start: 11-29-2023 End: 11-29-2023 ambulatory MORALES PERRY Not Available Start: 11-05-2023 End: 12-05-2023 Telephone encounter Morales Perry DO Work Phone: [facility] Start: 10-23-2023 End: 10-23-2023 ambulatory MORALES PERRY Not Available Start: 09-13-2023 End: 09-13-2023 ambulatory MORALES PERRY Not Available Start: 06-03-2022 End: 06-03-2022 ambulatory Elena Jackson Other [employer] Other Start: 06-03-2022 Office outpatient vi sit 15 minutes Elena Renetta [facility] Start: 02-06-2022 End: 02-06-2022 ambulatory Elena Renetta Other [employer] Other Start: 02-06-2022 Office outpatient vi sit 15 minutes Elena Renetta [facility] Start: 09-21-2021 End: 09-21-2021 ambulatory Elena Renetta Other [employer] Other Start: 09-21-2021 Nursing evaluation o f patient and report Elenashantell Jackson [facility] Start: 02-11-2021 Encounter for preprocedural laboratory examination DR BRANDEN MATIAS [facility] Start: 02-07-2021 Encounter for other preprocedural examination DR BRANDEN MATIAS [facility] Start: 02-07-2021 End: 02-07-[address] BRANDEN MATIAS Facility:[facility] Start: 02-04-2021 End: 02-05-[address] MARC WOODWARD Facility:[facility] Start: 02-04-2021 End: 02-05-2021 Encounter for preprocedural laboratory examination DR MARC WOODWARD Facility:[facility] Start: 02-01-2021 End: 02-02-[address] BRANDEN MATIAS Facility:[facility] Start: 01-05-2021 End: 01-05-[address] BRANDEN MATIAS Facility:[facility] Start: 12-29-2020 End: 12-30-[address] MARC WOODWARD Facility:[facility] Start: 12-28-2020 End: 12-29-[address] MARC WOODWARD Facility:[facility] Start: 11-08-2017 End: 11-08-2017 Emergency department patient visit None Facility:[facility] Plan of Treatment Date Care Activity Detail Author Start: 06-24-2024 End: 06-24-2024 Patient encounter procedure 06/24/2024 1:45 PM EDT Office Visit [facility] [address] [place] [address] Morales Perry DO [address] [place] [address] [facility] Start: 04-22-2024 End: 04-22-2024 Patient encounter procedure [facility] Comment on above: Arrived Start: 03-11-2024 End: 03-11-2024 Patient encounter procedure 03/11/2024 11:00 AM EST Office Visit [facility] [address] [place] [address] Morales Perry DO [address] [place] [address] [facility] Start: 01-31-2024 End: 01-31-2024 Patient encounter procedure 01/31/2024 10:00 AM EDT Office Visit [facility] [address] [place] [id number] Brown, Morales A, DO [address] [place] [address] [facility] Start: 01-02-2024 End: 01-02-2024 Patient encounter procedure [facility] Comment on above: Arrived Start: 12-19-2023 End: 12-19-2023 Patient encounter procedure [facility] Comment on above: Arrived Start: 12-10-2023 End: 12-10-2023 Patient encounter procedure 12/10/2023 1:00 PM EDT Procedure Visit [facility] Morales Perry, [address] [address] [facility] Payers Date Payer Category Payer [employer] [place] [employer] [id number] 2022 Unknown [id number] 2022 Unknown [id number] 2022 Worker's Compensation [employer] [id number] 7.315 2022 Unknown [id number] 1980 Unknown [id number] 2.16.840.1.435981.3.5 79.2.593 1979 Unknown [id number] 2.16.840.1.599004.3.5 79.2.593 1979 Unknown [id number] 2.16.840.1.729333.3.5 79.2.593 1979 Unknown [id number] 2.16.840.1.450795.3.5 79.2.593 1979 Unknown [id number] 2.16.840.1.224676.3.5 79.2.593 1979 Unknown [id number] 2.16.840.1.462464.3.5 79.2.593 1979 Unknown [id number] 2.16.840.1.271155.3.5 79.2.1259 1979 Unknown [id number] 2.16.840.1.760986.3.5 79.2.1259 1979 Unknown [id number] 2.16.840.1.560660.3.5 79.2.1259 1979 Unknown [id number] 2.16.840.1.235864.3.5 79.2.1259 1979 Unknown [id number] 2.16.840.1.598529.3.5 79.2.1259 1979 Unknown [id number] 2.16.840.1.260914.3.5 79.2.1259 1979 Unknown [id number] 2.16.840.1.522153.3.5 79.2.1259 1979 Unknown [id number] 2.16.840.1.490667.3.5 79.2.1259 1979 Unknown [id number] 2.16.840.1.886719.3.5 79.2.1259 1979 Unknown [id number] 2.16.840.1.955191.3.5 79.2.1259 1979 Unknown [id number] 2.16.840.1.061531.3.5 79.2.1259 1979 Unknown [id number] 2.16.840.1.154529.3.5 79.2.1259 1979 Unknown [id number] 2.16.840.1.245527.3.5 79.2.1259 1979 Unknown [id number] 2.16.840.1.700065.3.5 79.2.1259 1979 Unknown [id number] 2.16.840.1.163584.3.5 79.2.1259 1979 Unknown [id number] 2.16.840.1.332906.3.5 79.2.[address] [id number] Social History Date Type Detail Facility Unknown if ever smoked [facility] Other Start: 01-31-2024 End: 04-22-2024 Sex Assigned At [employer] Other Start: 10-23-2023 Tobacco smoking status [facility] Smokes tobacco daily [facility] History of tobacco use Cigarette Smoker [facility] Start: 10-23-2023 Tobacco use and exposure Smokeless tobacco non-user [facility] Start: 01-31-2024 End: 04-22-2024 Alcoholic beverage intake Lifetime non-drinker (finding) [facility] Start: 01-31-2024 End: 04-22-2024 History of Social function [facility] Start: 12-15-2022 Alcohol Comment Caffeine intake: none [facility] Start: 1980 Sex assigned at Female [facility] Start: 01-07-2024 Gender identity Identifies as female gender (finding) [facility] Start: 01-07-2024 Sexual orientation Choose not to disclose [facility] Start: 1980 Sex assigned at Not on file [facility] Clinical Notes 09-21-2021 to 04-22-2024 Morales Perry, - 04/22/2024 3:45 PM Yola Perry, - 01/31/2024 10:00 AM EDTTodJUICE Gilbert - 01/02/2024 10:45 AM EDTPatient InstructionsToJUICE Sage - 12/19/2023 2:30 PM EDT Note Date & Type Note Facility 04-22-2024 History of Presen t illness Narrative Images from the original note were not included. @ENCDATE@ Carol Fransisco Gonzalez is a 44 y.o. female who presents for Follow-up of the Left Wrist (Lt wrist 1st dorsal comp release [facility]SCNCO 10/10/23) HPI: History of Present Illness The patient is a 44-year-old female who presents for evaluation 4.5 months status post first dorsal compartment release to the left wrist. The surgery was performed on 12/10/2023. She reports persistent pain in her left wrist, which is exacerbated by touch and movement. The pain extends to her thumb, causing discomfort during flexion. She also experiences itching in the affected area. Despite returning to work, she has been unable to utilize her left hand due to the pain. Her job involves light duty, with no lifting over a pound, and she primarily relies on her right hand. She estimates that she uses her left hand for approximately 30 minutes during a 10-hour shift. SUBJECTIVE: MEDICATIONS: Current Outpatient Medications Medication Instructions rrjbamk-tsnhuipeyqsde-rawxflnv (Excedrin Migraine) 250-250-65 MG tablet 1 tablet, Every 6 hours PRN ibuprofen 800 MG tablet Every 8 hours ALLERGIES: Allergies Allergen Reactions Propoxyphene Baclofen Unknown Not sure Clarithromycin Unknown hives SURGICAL HISTORY: Past Surgical History: Procedure Laterality Date CARPAL TUNNEL RELEASE Right HEMORRHOIDECTOMY 08/2018 x3 sphincterotomy y-v anoplasty ME LAP,CHOLECYSTECTOMY 2016 WRIST SURGERY Left 12/10/2023 1st dorsal comp release-JADevi FAMILY HISTORY: Family History Problem Relation Name Age of Onset COPD Mother COPD Father Hypertension Father SOCIAL HISTORY: Social History Tobacco Use Smoking status: Every Day Current packs/day: 1.00 Types: Cigarettes Smokeless tobacco: Never Vaping Use Vaping status: Never Used Substance Use Topics Alcohol use: Never Comment: Caffeine intake: none Drug use: Never Depression: Not on file REVIEW OF SYMPTOMS: Review of Systems The review of systems, history and current medications list are all reviewed today. OBJECTIVE: Visit Vitals Ht 5' 3 Wt 240 lb BMI 42.51 kg/m OB Status Unknown Smoking Status Every Day BSA 2.2 m Physical Exam Alert and oriented, no acute distress. Mood and affect are appropriate. LEFT HAND AND WRIST Incision healed with hypertrophy to scar, slight swelling over 1st dorsal compartment with tenderness to palpation. Pain with resisted thumb extension. Still has pain with finklestein's. Flexion thumb IP and MCP joints intact, opposes thumb to all fingers. Hand well perfused RIGHT HAND AND WRIST The skin is warm, dry and intact. There is no swelling, no erythema, no ecchymosis. No atrophy of the thenar/hypothenar eminences and first dorsal webspace. No tenderness to palpation. The patient has full range of motion of all of the digits. No pain with flexion and extension of the wrist. The patient is able to make an OK sign, cross the fingers, and extend the thumb against resistance. No intrinsic hand muscle weakness. There is brisk capillary refill and a palpable radial pulse. Ortho Exam Results ASSESSMENT AND PLAN: I reviewed the history, physical exam, diagnostic studies, and diagnosis with the patient. Assessment & Plan 1. Postoperative status following first dorsal compartment release of the left wrist. The surgical intervention has not yielded the anticipated improvement in her condition. She reports persistent pain and sensitivity, especially when touching or moving the hand, and difficulty holding heavy objects. She also experiences itching and pain radiating up the thumb. She has not engaged in any rehabilitation exercises since her last visit, although she did participate in some rehab sessions prior to that. A referral will be made for her to undergo treatment with a microcurrent neurostimulator at the [facility] OT department. A C9 form will be completed to facilitate additional occupational therapy sessions. She is advised to maintain her current work schedule without any modifications. If there is no improvement after a few weeks of treatment, a referral to an orthopedic hand specialist will be considered for a second opinion. Follow-up The patient will follow up in 2 months. A total of 20 to 29 minutes was spent on this patient encounter which included chart review, check in, nurse triage, history taking, physical examination, diagnostic study review, patient counseling and discussion, entering information into the patient's medical record, and coordinating patient care There are no diagnoses linked to this encounter. Morales Perry D.O. Attestation This note was created using voice recognition through [employer] artificial intelligence. documented in this encounter [facility] 01-31-2024 History of Presen t illness Narrative Images from the original note were not included. @[email or web address]@ Carol Fransisco Gonzalez is a 43 y.o. female who presents for Post-op of the Left Wrist HPI: History of Present Illness The patient is a 43-year-old female who presents for evaluation of her left wrist. She is 7.5 weeks post-first dorsal compartment release surgery on her left wrist, which was performed on 12/10/2023. She reports increased swelling in her left wrist and experiences pain during massage sessions at occupational therapy at [facility]. Her therapy is scheduled to continue until 03/03/2024. She has been applying ice to the area, though not as frequently as recommended. She expresses concern about returning to work due to the persistent pain. She has a brace that immobilizes her thumb, which she finds uncomfortable to wear. SUBJECTIVE: MEDICATIONS: Current Outpatient Medications Medication Instructions jsijrtx-vjdwukzymnmny-vpgwlqcn (Excedrin Migraine) 250-250-65 MG tablet 1 tablet, Every 6 hours PRN ibuprofen 800 MG tablet Every 8 hours predniSONE (Deltasone) 10 MG tablet 6 pills day 1 & 2, 5 pills day 3 & 4, 4 pills day 5 & 6, 3 pills day 7 & 8, 2 pills day 9 & 10, 1 pill day 11 & 12 ALLERGIES: Allergies Allergen Reactions Propoxyphene Baclofen Unknown Not sure Clarithromycin Unknown hives SURGICAL HISTORY: Past Surgical History: Procedure Laterality Date CARPAL TUNNEL RELEASE Right HEMORRHOIDECTOMY 08/2018 x3 sphincterotomy y-v anoplasty ME LAP,CHOLECYSTECTOMY 2016 WRIST SURGERY Left 12/10/2023 1st dorsal comp release-JAB REVIEW OF SYMPTOMS: The review of systems, history and current medications list are all reviewed today. OBJECTIVE: Visit Vitals Temp 97.5 F Ht 5' 3 Wt 240 lb BMI 42.51 kg/m OB Status Unknown Smoking Status Every Day BSA 2.2 m Physical Exam Alert and oriented, no acute distress. Mood and affect are appropriate. LEFT WRIST Incision well healed. Mild swelling over 1st dorsal compartment. No erythema. Makes fist. Extends thumb. Full wrist ROM. Hand well perfused. Increased sensitivity over the skin surrounding the incision. Results ASSESSMENT AND PLAN: I reviewed the history, physical exam, diagnostic studies, and diagnosis with the patient. Assessment & Plan 7-1/2 weeks s/p first dorsal compartment release, left wrist The incisions have healed well, but there is some depigmentation in the area, which is expected to fade over time. She was advised to continue her rehabilitation exercises, perform an ice massage using a Lipscomb cup, and wear her brace during the day when not in therapy and at night to allow the area to rest. If the larger brace causes irritation, a smaller brace may be used to support the area. Follow-up Patient return in 6 weeks for follow up. There are no diagnoses linked to this encounter. Morales Perry D.O. Attestation This note was created using voice recognition through [employer]. documented in this encounter [facility] 01-02-2024 History of Presen t illness Narrative Images from the original note were not included. Subjective Patient ID: Carol Gonzalez is a 43 y.o. female. Chief Complaint: No chief complaint on file. Last Surgery: No surgery found Last Surgery Date: No surgery found HPI She still continues to have discomfort in the region of the scar and some small area of paresthesias to the dorsal aspect between the base of the 1st and 2nd metacarpals, she has had approval for the occupational therapy and would like to resume this through the OT department in [facility] from the hospital which she has been with in the past. She still has no ability to perform any light duty at work and we will be kept off until her symptoms improve and she can be seen by Dr. Morales Perry. Patient is concerned that if she went back light duty they would send her home after a few hours every day and she would not get 40 hours a week. Objective Ortho Exam Patient does appear to form more of a keloid with inflammatory scarring there is no evidence of infection she never did take her antibiotics as prescribed with previous visit. She is avoided using any kind of splint due to the pressure in the area and has intact extensor mechanism associated with her post surgical findings with the left 1st dorsal compartment release. Image Results: No image results found. Assessment/Plan Encounter Diagnoses: De Quervain's tenosynovitis Orders Placed This Encounter Ambulatory referral to Occupational Therapy Follow up in about 4 weeks (around 01/30/2024) for symptom check Return to work assessment with Dr. Morales Perry, Post-Op. Continue to massage the area and work on reducing inflammation with cold pack we will start up occupational therapy in [facility] from the [facility] at your request. We will continue off work until we can be re-evaluated by Dr. Morales Perry in 4 weeks and no your symptoms accordingly for return to work plan. Would avoid using splint and work on gentle range of motion of the thumb and active mobility of the wrist. If tolerated anti-inflammatory and or topical Voltaren gel may be helpful as well as use of Tylenol during the daytime. documented in this encounter [facility] 01-02-2024 Instructions JUICE Gillespie - 01/02/2024 10:45 AM EDT Continue to massage the area and work on reducing inflammation with cold pack we will start up occupational therapy in [facility] from the [facility] at your request. We will continue off work until we can be re-evaluated by Dr. Morales Perry in 4 weeks and no your symptoms accordingly for return to work plan. Would avoid using splint and work on gentle range of motion of the thumb and active mobility of the wrist. If tolerated anti-inflammatory and or topical Voltaren gel may be helpful as well as use of Tylenol during the daytime. documented in this encounter [facility] 12-19-2023 History of Presen t illness Narrative Images from the original note were not included. Subjective Patient ID: Carol Gonzalez is a 43 y.o. female. Chief Complaint: Post-op of the Left Wrist (12/10/23 JADevi) Last Surgery: No surgery found Last Surgery Date: No surgery found HPI Patient comes in early she had surgery little over a week ago and was concerned with irritation and swelling around her incision with some purulence around the sutures. She actually removed her own sutures earlier today because of discomfort and irritation. Objective Ortho Exam She does have some erythema around the suture portals with some macerated type tissue incision remains intact with mild erythema she has a associated some numbness to the dorsum of the hand between the incision in the base of the thumb approximately the size of a dime. Flexor and extensor tendons are intact she is able to move the thumb with only minimal tenderness. No cellulitis noted no phlebitis seen. Image Results: No image results found. Assessment/Plan Encounter Diagnoses: Skin wound from surgical incision Orders Placed This Encounter cephalexin (Keflex) 500 MG capsule Follow up in about 2 weeks (around 01/02/2024) for Post-Op, symptom check with Dr. Morales Perry.Take Keflex as prescribed for the next 10 days we will have you avoid using Neosporin or ointment over the wound and just use peroxide to cleanse and leave air dry and then cover with dry Band-Aid. Since sutures have been removed this should stopped the irritation and promote healing. Call if symptoms worsen or wound opens up and drains any purulent discharge associated with fever chills or increased pain. documented in this encounter [facility] 12-19-2023 Instructions JUICE Gillespie - 12/19/2023 2:30 PM EDT Take Keflex as prescribed for the next 10 days we will have you avoid using Neosporin or ointment over the wound and just use peroxide to cleanse and leave air dry and then cover with dry Band-Aid. Since sutures have been removed this should stopped the irritation and promote healing. Call if symptoms worsen or wound opens up and drains any purulent discharge associated with fever chills or increased pain. documented in this encounter [facility] 11-16-2023 Telephone encounter Note She is scheduled for Dec 09 she is coming in on Nov 28 [facility] Work Phone: 11-16-2023 Miscellaneous Notes She is scheduled for Dec 09 she is coming in on Nov 28 Please let me know when the surgery is scheduled and I will notify the [facility] and send a Medco-14 documented in this encounter [facility] 11-05-2023 Telephone encounter Note Please let me know when the surgery is scheduled and I will notify the [facility] and send a Medco-14 [facility] 06-03-2022 Evaluation note Encounter Date Diagnosis Assessment [...] no improvement in 2 to 3 days. [employer] Other 10-24-2022 Evaluation note* Encounter Date Diagnosis Assessment Notes Treatment Notes Treatment Clinical Notes Jan, Contact with and (suspected) exposure [...] no improvement in 2 to 3 days. [employer] Other 06-08-2022 Evaluation note* Encounter Date Diagnosis Assessment Notes Treatment Notes Treatment Clinical Notes Sep, Encounter for screening for other viral diseases (ICD-10 - Z11.59) Sep, Other Additional time spent conducting pre-visit phone call, screening for symptoms, instructions on social distancing, application and removal of PPE, and cleaning of examination room, equipment and supplies was preformed. Patient education given for testing methodology and results. Patient care instructions given in writting by [facility] Care At Home document. [employer] Other Evaluation note* Diagnosis De Quervain's tenosynovitis- Primary Radial styloid tenosynovitis documented [facility]* Diagnosis De Quervain's tenosynovitis Radial styloid tenosynovitis documented [facility]* Diagnosis Skin wound from surgical incision- Primary documented [facility] this [facility] Narrative - Reported* Type Description Date Medical History rheumatoid arthritis Retention Education Other Reason for referral (narrative)* Consultation (Routine) - Pending Review Specialty Diagnoses / Procedures Referred By Michela hood Referred To Contact Occupational Therapy Diagnoses De Quervain's tenosynovitis Procedures ME OFFICE/OUTPATIENT [facility] 60 MINUTES Morales Perry DO [address] [place] [address] [facility] Physical Therapy [address] [facility], [address] Referral ID Status Reason Start Date Expiration Date Visits Requested Visits Authorized [id number] Pending Review Consult and Treat 01/02/2024 06/30/2024 1 1 [facility] Summary Purpose Family History No Family History Records FoundNo Family History Records FoundNo Family History Records Found Advance Directives No Advanced Directives Records FoundNo Advanced Directives Records FoundNo Advanced Directives Records Found Additional Source Comments INFORMATION SOURCE (unrecogn ized section and content) DATE CREATED AUTHOR 11/12/2017 [facility] DATE CREATED AUTHOR AUTHOR'S ORGANIZ ATION 02/18/2021 [facility] DATE CREATED AUTHOR AUTHOR'S ORGANIZ ATION 04/28/2024 [facility] EPIC REASON FOR VISIT (unrecogniz ed section and content) Reason Comments Follow-up Lt wrist 1st dorsal comp release [facility] 10/10/23 Reason Comments Post-op 12/10/23 JAB Reason Comments Post-op H/A, CONGESTION, B/A, NAUSEA.HERNANDEZ JEEP, COUGH, CONGESTION, SORE THROAT, H/A Care Teams (unrecognized sec tion and content) [employer] Relationship Specialty Start Date End Date Marc Woodward MD [address] [place] [address] PCP - General Family Medicine 11/29/23 [employer] Relationship Specialty Start Date End Date Marc Woodward MD [address] [place] [address] PCP - General Family Medicine 11/29/23 [employer] Relationship Specialty Start Date End Date Marc Woodward MD [address] [place] [address] PCP - General Family Medicine 11/29/23 [employer]ator Relationship Specialty Start Date End Date Marc Woodward MD [address] [place] [address] PCP - General Family Medicine 11/29/23 [employer] Relationship Specialty Start Date End Date Marc Woodward MD [address] [place] [address] PCP - General Family Medicine 11/29/23 [employer]ator Relationship Specialty Start Date End Date Marc Woodward MD [address] [place] [address] PCP - General Family Medicine 11/29/23 [employer]astics [employer]ator Relationship Specialty Start Date End Date Marc Woodward MD [address] [place] [address] PCP - General [facility] 11/29/23 Plastics [employer]ator Relationship Specialty Start Date End Date Marc Woodward MD [address] [place] [address] PCP - General [facility] Medicine 11/29/23 FOR RECORDS PERTAINING TO PATIENTS WHO ARE [...] BE BASED ON THE PRIMARY CLINICAL RECORDS. [facility] [facility]. provides no warranty or guarantee of the accuracy or completeness of information in this document.
--- NOTE | 2024-06-08 16:06 | ED.URI1 ---
HPI - URI/Sore Throat General Chief Complaint: Upper Respiratory Infection Stated Complaint: congested Time Seen by Provider: 06/08/24 15:42 Source: patient History of Present Illness HPI Narrative: cc = flu-like illness Pt with several days of cough, nasal congestion, fever, achiness and fatigue. Developed nausea and vomiting two days ago. She lost her voice from the coughing. She said that she needs a work excuse or she will get fired. Related Data Previous Rx's ?Medication ?Instructions ?Recorded vhagecmofvyapso-besepftybsziokl-EH 10 ml PO Q6H PRN cold symptoms 06/08/24 2 mg-30 mg-10 mg/5 mL oral syrup #200 mL (Bromfed DM) ondansetron 4 mg disintegrating 4 mg PO Q6H PRN nausea and 06/08/24 tablet vomiting #20 tabs Allergies Allergy/AdvReac Type Severity Reaction Status Date / Time clarithromycin (From Biaxin) Allergy Unknown Verified 09/06/23 04:11 baclofen Allergy Unknown Uncoded 09/06/23 04:11 PFSH PFSH Social History Little interest or pleasure in doing things: not at all Feeling down, depressed, or hopeless: not at all Exam Narrative Exam Narrative: Nurses notes and vital signs reviewed and patient is not hypoxic. afebrile General: Well-appearing and in no apparent distress. Skin: Warm, dry, no pallor noted. Head: Normocephalic, atraumatic. Neck: Supple, non-tender. No cervical lymphadenopathy Eye: Pupils are equal, round and EOMI. No scleral icterus. Ears, Nose, Mouth, and Throat: TM are clear, mild posterior oropharynx erythema, mild nasal mucosal hypertrophy, uvula is mid-line Oral mucosa is moist Cardiovascular: Regular Rate and Rhythm without murmur, gallop or rub. Respiratory: No accessory muscle use or respiratory distress. Lungs = Central scattered rhonchi Musculoskeletal: normal ROM, no calf or popliteal tenderness, no lower extremity edema/swelling GI: Abdomen is soft, non-distended. Normal bowel sounds. No masses appreciated. No tenderness to palpation. No rebound, guarding, or rigidity noted. Neurological: A&O x4. No cranial nerve dysfunction observed. No truncal ataxia. Moves all extremities. Sensation intact. Psychiatric: Cooperative and interactive. Normal mood and affect. Constitutional Vital Signs, click to edit/add: Last Vital Signs Temp 98.2 F 06/08/24 15:39 Pulse 74 06/08/24 15:39 Resp 18 06/08/24 15:39 BP 157/85 H 06/08/24 15:39 Pulse Ox 96 06/08/24 15:39 O2 Del Method Room Air 06/08/24 15:39 Course Vital Signs Vital signs: Vital Signs Temperature 98.2 F 06/08/24 15:39 Pulse Rate 74 06/08/24 15:39 Respiratory Rate 18 06/08/24 15:39 Blood Pressure 157/85 H 06/08/24 15:39 Pulse Oximetry 96 06/08/24 15:39 Oxygen Delivery Method Room Air 06/08/24 15:39 Temperature 98.2 F 06/08/24 15:39 Pulse Rate 74 06/08/24 15:39 Respiratory Rate 18 06/08/24 15:39 Blood Pressure 157/85 H 06/08/24 15:39 Pulse Oximetry 96 06/08/24 15:39 Oxygen Delivery Method Room Air 06/08/24 15:39 MDM - URI/Sore Throat MDM Narrative Medical decision making narrative: Patient has a viral syndrome with multiple systems affected. She was given a work excuse and then discharged home with prescriptions for Zofran and Bromfed cough syrup. ED return if she worsens Discharge Plan Discharge Chief Complaint: Upper Respiratory Infection Clinical Impression: Viral infection, Viral upper respiratory tract infection with cough Patient Disposition: Home, Self-Care Time of Disposition Decision: 16:13 Prescriptions / Home Meds: New zjiduswtwmxxjux-qkqwjrltd-YU [Bromfed DM] 2-30-10 mg/5 mL syrup 10 ml PO Q6H PRN (Reason: cold symptoms) Qty: 200 0RF ondansetron 4 mg tablet,disintegrating 4 mg PO Q6H PRN (Reason: nausea and vomiting) Qty: 20 0RF Print Language: Moldovan Instructions: Upper Respiratory Infection (ED), Viral Syndrome (ED) Referrals: Physician,Non-Staff, MD [Primary Care Provider] - 1 week
== END 2024-06-08 16:23 | disposition home or self-care (01) ==
PROVIDERS: Emergency Provider Emergency Medicine
DX: J06.9 Acute upper respiratory infection, unspecified (principal); B34.9 Viral infection, unspecified; R05.9 Cough, unspecified; R09.81 Nasal congestion; R50.9 Fever, unspecified; R53.83 Other fatigue; R11.2 Nausea with vomiting, unspecified
CPT/HCPCS: 99283